=== PATIENT | female | born 1965 | race Caucasian/White ===

== ENCOUNTER 2019-12-27 07:48 | Day surgery (SDC) | payer OTHER, SELFPAY ==
[2019-12-26 19:21] VITALS: BMI 43.2
[2019-12-27] VITALS (13 sets, daily range): BP systolic 106–149; BP diastolic 62–84; PULSE 65–80; RESP 12–16; TEMP 36.1–36.9; O2SAT 95–100
--- NOTE | 2019-12-27 07:42 | MHC.SHP ---
Pre-Procedural Eval Section B Chief Complaint: medial meniscus tear Details of Present Illness: right knee pain Relevant Family History (Specify if Yes): No Relevant Social History: None Present Medications: see Short Stay Collaborative assessment Medical History: No relevant PMH History of Previous Operations: No relevant previous surgery Allergies: Allergies Allergy/AdvReac Type Severity Reaction Status Date / Time No Known Allergies Allergy Verified 12/26/19 19:41 Review of Systems Sugical H&P ROS: Negative: Constitution, Cardiovascular, Respiratory, Neurological, Psychiatric, Hem-Onc, Allergic/Immunologic, Gastrointestinal, Genitourinary, Integumentary and Endocrine and Yes, Specify: Musculoskeletal (right knee pain) Exam Surgical H&P Exam: Normal: HEENT, Normal: Heart, Normal: Lungs, Normal: Abdomen, Normal: Skin and Normal: Neurological and Significant Findings: Extremities (right knee medial joint line pain) Plan Diagnosis/Plan: Change (plan for right knee arthroscopy for medial meniscus tear) Patient has been examined and remains a candidate for the planned procedure
--- NOTE | 2019-12-27 07:49 | HO.ANESPROP2 ---
HPI - Anesthesia Eval Consult details Narrative: Right knee pain PMFSH Past Medical History Medical History (Updated 12/27/19 @ 07:53 by Shena Roberts) Arthritis Increased BMI Liver problem Family History Family history of problems with anesthesia: No Surgical History Surgical History (Updated 12/26/19 @ 19:31 by Chelita Agustin RN) History of breast biopsy History of carpal tunnel release of both wrists History of surgical removal of ganglion cyst Hx of tonsillectomy S/P trigger finger release History of Problems with Anesthesia: No Social History Social History Are you a primary director of career services to a significant other at home: No Do you presently have visiting nurse or other home services: No Smoking Status: Former smoker Smoking Quit Date: 2010 Use of substances other than those prescribed or required for medical reasons: No Advance Directives: No Advance Directives Information Provided: No Advance Directives on File: No Meds Allergies Allergy/AdvReac Type Severity Reaction Status Date / Time No Known Allergies Allergy Verified 12/26/19 19:41 Home Medications Medication Instructions Recorded Confirmed Type No Known Home Meds 12/27/19 12/27/19 History Exam Exam Date and Time: December 27, 2019 0749 Height,Weight and Vital Signs: Height. 5ft 5in Weight 118.026kg Vital Signs Temp Pulse Resp BP Pulse Ox 12/27/19 08:09 98.4 F 77 16 149/73 H 100 Assessment and Plan Assessment Anesthesia Assessment: Anesthesia Plan Discussed and Chart Reviewed Final Anesthetic Review NPO: Yes ASA Class: II Final Preanesthetic Review: No Changes in Pt Med Stat, Meds/Allgs Chart Reviewed, Consent Obtained/Reviewed and Anes Risks/Benef Reviewed Patient Risk: Intermediate Procedure Risk: Low Anesthetic Plan Anesthetic Plan: GA Disposition: Standard PACU
[2019-12-27] MEDS: Lactated Ringers 1,000 ML 50 ML IVCONT (08:40)
[2019-12-27] MEDS: Acetaminophen 325 MG TABLET 650 MG PO (12:03)
[2019-12-27] MEDS: oxyCODONE HCl Immed Release 5 MG TABLET 10 MG PO (12:04)
--- NOTE | 2019-12-27 12:10 | P.CONAN_ITS ---
[facility] Past Medical History Medical History (Updated 12/27/19 @ 07:53 by Shena Roberts) Arthritis Increased BMI Liver problem Family History Family history of problems with anesthesia: No Surgical History Surgical History (Updated 12/26/19 @ 19:31 by Chelita Agustin RN) History of breast biopsy History of carpal tunnel release of both wrists History of surgical removal of ganglion cyst Hx of tonsillectomy S/P trigger finger release History of Problems with Anesthesia: No Social History Social History Are you a primary healthcare customer service to a significant other at home: No Do you presently have visiting nurse or other home services: No Smoking Status: Former smoker Smoking Quit Date: 2010 Use of substances other than those prescribed or required for medical reasons: No Advance Directives: No Advance Directives Information Provided: No Advance Directives on File: No Meds Allergies Allergy/AdvReac Type Severity Reaction Status Date / Time No Known Allergies Allergy Verified 12/26/19 19:41 Exam Exam Date and Time: December 27, 2019 1210 Height,Weight and Vital Signs: Height 5 ft 5 in Weight 118.026 kg Last Vital Signs Temp 97.0 F 12/27/19 11:47 Pulse 72 12/27/19 11:47 Resp 12 12/27/19 11:47 BP 106/83 12/27/19 11:47 Pulse Ox 100 12/27/19 11:47 Airway Mallampati Class: II TM Dist: >3cm Neck ROM: Full Loose/Missing/Broken Teeth: No Heart: RRR Lungs: CTAB Assessment and Plan Assessment Anesthesia Assessment: Anesthesia Plan Discussed and Chart Reviewed Final Anesthetic Review NPO: Yes ASA Class: II Final Preanesthetic Review: No Changes in Pt Med Stat, Meds/Allgs Chart Reviewed , Consent Obtained/Reviewed and Anes Risks/Benef Reviewed Patient Risk: Intermediate Procedure Risk: Low Anesthetic Plan Anesthetic Plan: GA Disposition: Standard PACU
[2019-12-27] MEDS: fentaNYL citrate/PF 100 MCG/2 ML VIAL 50 MCG IVPUSH ×3 (12:12→12:47)
[2019-12-27] MEDS: fentaNYL citrate/PF 100 MCG/2 ML VIAL 25 MCG IVPUSH (12:29)
--- NOTE | 2019-12-27 13:14 | PM.OP ---
Brief Operative Note Date of procedure: 12/27/19 Pre-op diagnosis: right knee mmt Post-op diagnosis: other (right knee mmt, right knee medial femoral condyle injury, loose body, lateral meniscus tear) Procedure: right knee with partial medial and lateral meniscectomy, removal of loose body and chondroplasty Surgeon: Reyes Chan MD Anesthesia: GETA and local IV fluids (mL): 500 Pathology: none sent Condition: stable Disposition: PACU
--- NOTE | 2019-12-27 13:40 | HO.POSTANES ---
Post Anesthesia Evaluation Post Anesthesia Evaluation Vital Signs: Vital Signs Temp Pulse Resp BP Pulse Ox 12/27/19 13:07 65 16 115/72 97 12/27/19 12:52 69 16 121/68 95 12/27/19 12:47 80 16 134/73 100 12/27/19 12:34 65 16 108/72 97 12/27/19 12:29 69 16 127/73 97 12/27/19 12:17 71 16 110/62 97 12/27/19 12:14 16 12/27/19 12:12 16 12/27/19 12:02 72 16 133/73 96 12/27/19 11:57 69 16 126/63 97 12/27/19 11:52 70 16 119/84 100 12/27/19 11:47 97.0 F 72 12 106/83 100 12/27/19 08:09 98.4 F 77 16 149/73 H 100 Anesthesia: General LMA Mental Status: Awake Pain Control: Satisfactory Nausea/Vomiting: None Hydration: Adequate Anesthesia-Related Issues: No Anes. Related Issues
--- NOTE | 2020-01-03 14:32 | OP_ITS ---
SURGEON: Reyes Chan MD INDICATIONS: This is a 54-year-old woman with ongoing pain secondary to clinically and radiologically documented meniscus tear of both the medial and lateral compartments. PREOPERATIVE DIAGNOSIS: Right knee medial meniscus tear. PROCEDURE PERFORMED: Right knee arthroscopy with partial, medial and lateral meniscectomy, removal of loose body, and chondroplasty. ESTIMATED BLOOD LOSS: None. COMPLICATIONS: None known. ANESTHESIA: General and local. ASSISTANTS: None. SPECIMENS: POSTOPERATIVE DIAGNOSES: 1. Right knee medial meniscus tear. 2. Right medial femoral condyle, loss of cartilage. 3. Loose body. 4. Lateral meniscus tear. FLUIDS: 500. PROCEDURE IN DETAIL: The patient was brought to the operating room, placed supine on the operative table and prepped and draped in standard sterile fashion. Time-out was called to identify proper site, proper procedure, proper surgeon. IV antibiotics per weight was administered. I began by making anterolateral stab incision and placed my blunt trocar atraumatically into the patellofemoral joint. I insufflated the joint, placed my 30-degree arthroscope. She had florid synovitis of the anterior compartment and grade 1 changes of both the patella and the trochlea. The gutters were clean. I descended into the medial compartment and made my medial portal under direct visualization. Most notable was a large approximately 1 cm x 2 to 3 cm long, soft grade 4 cartilage loss on the medial half of the weightbearing portion of the medial femoral condyle. Adjacent to this, was a large complex meniscus tear. I used a combination of a shaver, biter, and cautery to debride the meniscus down to stable edges. I also used a shaver to remove any loose cartilaginous tissue. As I descended to expect the ACL, there was a large chondral synovialized loose body that was removed. Once this was done, I descended into the lateral compartment. She had an undersurface flap tear of the lateral meniscus. This was removed with a shaver and biter and the remaining meniscus was probed and was found to be stable. Once all this was done, I removed my instrumentation. Portals were closed with nylon and I injected 25 mL of 0.25% Marcaine plain into the knee joint and the surrounding soft tissues around the portals. The patient was placed in sterile dressing, extubated, and brought to recovery room in stable condition. There were no known complications. MD CECILIA Alvarez/JACY / [id number] MTDD
== END 2019-12-27 13:45 | disposition home or self-care (01) ==
PROVIDERS: PCP Internal Medicine; Visit Provider Orthopaedic Surgery
PROC: (CPT 29870; principal; 2019-12-27 09:30)
DX: S83.231A Complex tear of medial meniscus, current injury, right knee, initial encounter (principal); S83.281A Other tear of lateral meniscus, current injury, right knee, initial encounter; M23.91 Unspecified internal derangement of right knee; M23.41 Loose body in knee, right knee; M17.11 Unilateral primary osteoarthritis, right knee; X58.XXXA Exposure to other specified factors, initial encounter; Y93.9 Activity, unspecified; Y92.9 Unspecified place or not applicable; Y99.8 Other external cause status
CPT/HCPCS: 29880; J0171; J0690; J1100; J1885; J2250; J2405; J3010

== ENCOUNTER → 2020-01-11 10:37 | Outpatient (BNVA) | payer OTHER, SELFPAY | PROVIDERS: Visit Provider Physician Assistant | DX: Z76.89 Persons encountering health services in other specified circumstances (principal) ==

== ENCOUNTER 2020-02-15 14:00 | Outpatient (RCR) | payer OTHER, SELFPAY ==
--- NOTE | 2020-01-16 09:21 | MHC.PT.EP ---
[facility] [place] Office [place] Office [place] Office [address] Perico Louise [address] [phone] F: [phone] F: [phone] F: [phone] F: [phone] Physical Therapy Plan of Care Date of Evaluation: 01/16/20 Date of Surgery: 12/27/2019 Diagnosis: R medial and lateral menisectomy 12/26 Assessment: 54 y/o female referred to PT s/p R knee menisectomy on 12/27/2019. Reports pain and difficulty with walking > 10min, sitting and standing for prolonged periods, ascending/descending stairs (performs one at a time laterally), and squatting. 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 Examination shows decreased R knee A/PROM (0-5-96), decreased R knee/hip strength, increased tenderness/hypomobile tissue medial HS/gastoc, R knee swelling, pain, and impaired gait pattern. She would benefit from PT 2x/week for 4 weeks to address impairments, implement HEP, and optimize functional mobility. Frequency and Duration: The patient will be seen 2x/week for 4 weeks Short Term Goals: 2 weeks: 1. Initiate HEP 2. Improve R knee AROM to 0-115 3. Pt will sit with neutral B LE posture without cues IR: maintain R knee in extension and slight hip ER Usp Goals: 4 weeks: 1. I with HEP and self management of sx 2. Pt will ascend/descend stairs with one rail in step through 3. Pt will be able to stand > 30min with R knee pain < 3/10 Treatment Plan: Modalities to reduce pain, spasms and effusion. Manual therapy to restore motion and function. Therapeutic exercise to improve strength and flexibility. Neuromuscular re-education for posture and balance. Therapeutic activities to return to functional activities of daily living. Please sign and return to therapist. Thank you for your referral.
== END 2020-04-11 09:54 | disposition other institution (70) ==
LOC: HO.PTWFD 14:00
PROVIDERS: PCP Internal Medicine; Visit Provider Physician Assistant
DX: Z47.89 Encounter for other orthopedic aftercare (principal); Z98.890 Other specified postprocedural states
CPT/HCPCS: 97014; 97035; 97110; 97116; 97140; 97161; 97535

== ENCOUNTER → 2020-05-10 08:24 | Outpatient (BNVA) | payer SELFPAY | PROVIDERS: PCP Internal Medicine; Visit Provider Orthopaedic Surgery | DX: M17.11 Unilateral primary osteoarthritis, right knee (principal) | CPT/HCPCS: 20610; J1100 ==

== ENCOUNTER → 2020-10-30 08:46 | Outpatient (BNVA) | payer OTHER, SELFPAY | PROVIDERS: PCP Internal Medicine; Visit Provider Physician Assistant | DX: Z76.89 Persons encountering health services in other specified circumstances (principal) | CPT/HCPCS: 73564; 99203 ==

== ENCOUNTER 2020-11-04 12:22 | Outpatient (REF) | payer OTHER, SELFPAY ==
--- NOTE | ~2020-11-04 | MM_ITS ---
EXAMINATION: MM SCREENING DIGITAL BREAST TOMOSYNTHESIS, BILATERAL CLINICAL INFORMATION: Screening. Asymptomatic. The lifetime risk of breast cancer based on the Tyrer-Cuzick Model is 18%. COMPARISON: Mammography: 11/01/2019, 07/19/2018, 01/20/2017 TECHNIQUE: Digital breast tomosynthesis is performed in both the craniocaudal and mediolateral oblique views along with computer-aided detection (CAD). Synthesized 2D images are generated from the tomosynthesis. FINDINGS: There are scattered areas of fibroglandular density (ACR BI-RADS breast composition Category b). There are no significant masses, abnormal calcifications, or other abnormalities. There is small stable nodule posterior 6:00 right breast. Low right axillary tail nodes stable. Skin contours are smooth. There are no significant changes from prior exams. MM/MM tomosynthesis screening BI IMPRESSION: No mammographic evidence of malignancy. ASSESSMENT: BI-RADS 2: Benign RECOMMENDATION: Routine annual mammography screening. This patient's information was entered into a reminder system with a target due date for their next mammogram.
== END 2020-11-04 12:23 | disposition home or self-care (01) ==
LOC: HO.MAMMO 12:22
PROVIDERS: PCP Internal Medicine; Visit Provider Internal Medicine
DX: Z12.31 Encounter for screening mammogram for malignant neoplasm of breast (principal)
CPT/HCPCS: 77063; 77067

== ENCOUNTER 2021-03-20 07:27 | Outpatient (REF) | payer OTHER, SELFPAY ==
--- NOTE | ~2021-03-20 | MR_ITS ---
EXAMINATION: MR KNEE WITHOUT CONTRAST, RIGHT CLINICAL INFORMATION: Right knee pain and swelling following a fall on 02/20/2021. Osteoarthritis. Arthroscopic meniscal repair in 2019. COMPARISON: Right knee radiographs dated 10/30/2020 and right knee MRI dated 12/13/2019. TECHNIQUE: MRI of the knee without contrast was performed using routine sequences on a high-field scanner. FINDINGS: MENISCI: Medial Meniscus: Interval attenuation of the meniscal body, likely indicating a focal radial inner margin tear. Additional abnormal signal throughout the tibial articular surface of the posterior horn, increased in prominence when compared to the prior examination and likely representing a combination of postsurgical change and recurrent tearing. Lateral Meniscus: Oblique tibial articular surface tear of the meniscal body extending into the posterior horn, new/increased when compared to the prior examination. Inner margin fraying of the posterior root, increased when compared to the prior examination. LIGAMENTS: Cruciate: Thickening and increased T2 signal of the anterior cruciate ligament, increased when compared to the prior examination and consistent with mucoid degeneration. Intact posterior cruciate ligament. Collateral: Edema adjacent to the medial collateral ligament consistent with an acute grade 1 sprain/partial tear. Intact fibular collateral ligament. EXTENSOR MECHANISM: Superior patellar enthesophytes. Intact quadriceps and patellar tendons. ARTICULAR CARTILAGE/BONE: Patellofemoral Compartment: Patellar articular cartilage thinning. Central trochlea articular cartilage signal heterogeneity with areas of full-thickness fissuring. Tiny marginal osteophytes. Findings are similar when compared to the prior examination. Medial Compartment: Full-thickness weightbearing medial femoral condyle and medial tibial plateau articular cartilage loss with marginal osteophytes, increased in prominence when compared to the prior examination. Lateral Compartment: Lateral tibial spine articular cartilage thinning with subchondral cystic change, similar when compared to the prior examination. Tiny marginal osteophytes. JOINT FLUID AND BURSAE: Small joint effusion with mild synovitis. Small Aranda's cyst. MR/MR knee RT wo con IMPRESSION: 1. Increased attenuation of the medial meniscal body as well as increasing abnormal signal throughout the tibial articular surface of the posterior horn. Findings likely represent a combination of postsurgical change and recurrent meniscal tearing. 2. Oblique tibial articular surface tear of the lateral meniscal body extending to the posterior horn, new/increased when compared to the prior examination. New inner margin fraying of the posterior root. 3. Mucoid degeneration of the anterior cruciate ligament, increased when compared to the prior examination. 4. Acute grade 1 sprain/partial tear of the medial collateral ligament. 5. Moderate medial as well as mild patellofemoral compartment osteoarthritis, slightly progressed. Stable mild lateral compartment osteoarthritis. Small joint effusion with mild synovitis. Small Aranda's cyst.
== END 2021-03-20 07:28 | disposition home or self-care (01) ==
LOC: HO.MRI 07:27
PROVIDERS: Visit Provider Physician Assistant
DX: M17.11 Unilateral primary osteoarthritis, right knee (principal)
CPT/HCPCS: 73721

== ENCOUNTER 2021-07-02 14:13 | Outpatient (REF) | payer OTHER, SELFPAY ==
[2021-07-05 02:06] LABS: HPV mRNA E6/E7 rflx Not Detected (Not Detected)
== END 2021-07-02 14:14 | disposition home or self-care (01) ==
LOC: HO.LAB 14:13
PROVIDERS: PCP Internal Medicine; Visit Provider Obstetrics & Gynecology
DX: Z01.411 Encounter for gynecological examination (general) (routine) with abnormal findings (principal); Z11.51 Encounter for screening for human papillomavirus (HPV); N95.2 Postmenopausal atrophic vaginitis
CPT/HCPCS: 87624; 88142

== ENCOUNTER 2021-07-15 06:08 | Outpatient (REF) | payer OTHER, SELFPAY ==
[2021-07-15 06:24] LABS: MANUAL DIFF FLAG NO
[2021-07-15 07:36] LABS: Appearance Urine CLEAR; Color Urine YELLOW; Glucose Urine UA NEG (NEG); Leukocyte Esterase Urine NEG (NEG); Nitrite Urine NEG (NEG); Specific Gravity - Urine >= 1.030 (1.005-1.025); Urine Blood NEG (NEG); Urine Ketones NEG (NEG); Urine Protein NEG (NEG-TRACE)
[2021-07-15 07:36] LABS: Basophils Percent Auto 0.8 % (0-2); Eosinophils Absolute Auto 0.5 X10*3/uL (0.0-0.4); Eosinophils Percent Auto 8.7 % (0-4); Hematocrit 44.9 % (37.0-47.0); Hemoglobin 13.8 g/dl (12.0-16.0); Imm Gran Abs Auto 0.02 X10*3/uL (0.00-0.03); Imm Gran Pct Auto 0.4 % (0.0-0.4); Lymphocytes Absolute Auto 1.7 X10*3/uL (1.2-4.9); Lymphocytes Percent Auto 31.8 % (20-40); Mean Corpuscular HGB Conc 30.7 g/dl (31.0-35.0); Mean Corpuscular Volume 84.6 fL (80.0-98.0); Mean Platelet Volume 10.3 fL (9.4-12.3); Monocytes Absolute Auto 0.6 X10*3/uL (0.1-1.2); Monocytes Percent Auto 10.4 % (2-11); Neutrophils Absolute Auto 2.6 x10*3/uL (2.0-8.3); Neutrophils Percent Auto 47.9 % (45-73); Platelet Count 335 X10*3/uL (160-400); Red Blood Count 5.31 X10*6/uL (4.20-5.50); Red Cell Distribution Width 14.2 % (11.0-16.0); White Blood Count 5.3 X10*3/uL (4.8-10.8)
[2021-07-15 08:20] LABS: Free T4 (Free Thyroxine) 1.11 ng/dL (0.71-1.85); Thyroid Stimulating Hormone 1.44 uIU/mL (0.32-4.0); Vitamin D 25-OH Total 28.1 ng/mL (>30)
[2021-07-15 08:23] LABS: Estimated Average Glucose 120 mg/dL; Hemoglobin A1c % 5.8 %
[2021-07-15 08:36] LABS: Alanine Aminotransferase 24 U/L (0-31); Albumin Level 4.1 g/dL (3.5-5.0); Alkaline Phosphatase 77 U/L (39-117); Anion Gap 14 (12-20); Aspartate Amino Transferase 21 U/L (5-31); Bilirubin Total 0.5 mg/dL (0.0-1.0); Blood Urea Nitrogen 17 mg/dL (9-16); Calcium 9.4 mg/dL (8.4-10.2); Carbon Dioxide 23 mmol/L (22-29); Chloride 109 mmol/L (96-108); Cholesterol 313 mg/dL; Estimated Glomerular Filt Rate > 60; Glucose Random 104 mg/dL (60-115); HDL Cholesterol 81 mg/dL; LDL Cholesterol Calculated 216 mg/dl; Potassium 5.4 mmol/L (3.3-5.1); Sodium 141 mmol/L (135-145); Total Protein 6.7 g/dL (6.5-8.0); Triglycerides 84 mg/dL
== END 2021-07-15 06:09 | disposition home or self-care (01) ==
LOC: HO.LAB 06:08
PROVIDERS: PCP Internal Medicine; Visit Provider Internal Medicine
DX: E78.00 Pure hypercholesterolemia, unspecified (principal); R73.01 Impaired fasting glucose; R35.1 Nocturia
CPT/HCPCS: 36415; 80053; 80061; 81003; 82306; 83036; 84439; 84443; 85025

== ENCOUNTER → 2021-12-25 15:38 | Outpatient (BNVA) | payer OTHER, SELFPAY | PROVIDERS: PCP Internal Medicine; Visit Provider Orthopaedic Surgery | DX: M17.0 Bilateral primary osteoarthritis of knee (principal) | CPT/HCPCS: 20610; 90686; J1100 ==

== ENCOUNTER → 2022-02-17 12:45 | Outpatient (BNVA) | payer OTHER, SELFPAY | PROVIDERS: PCP Internal Medicine | DX: Z13.89 Encounter for screening for other disorder (principal) | CPT/HCPCS: 36415; 84450; 84460; 85025; 86803; 87389; 99203 ==

== ENCOUNTER 2022-02-24 16:00 | Outpatient (RCR) | payer OTHER, SELFPAY ==
--- NOTE | 2022-02-11 17:37 | MHC.PT.EP ---
[facility] [place] Office [place] Office [place] Office [address] Perico Louise [address] [phone] F: [phone] F: [phone] F: [phone] F: [phone] Physical Therapy Plan of Care Date of Evaluation: Date of Surgery: N/A Diagnosis: sacrococcygeal disorders, not elsewhere classified Assessment: Pt is a pleasant 57yo F who presents to PT with L sided low back pain. 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 She presents to PT with current impairments in pain, decreased lumbar ROM, decreased core stabilization, decreased hip/glute strength, soft tissue restrictions, and decreased muscle length. She is extremely TTP throughout L piriformis with reproductions of symptoms. She is limited functionally by prolonged standing, prolonged sitting, bending, and twisting. She is an excellent candidate for skilled PT in order to address current impairments to facilitate return to PLOF. She is recommended to be seen 2x/week for 4 weeks and will be reassessed at that time. Frequency and Duration: The patient will be seen 2x/week for 4 weeks Short Term Goals: Pt will be I with HEP to promote self management of symptoms Pt will demonstrate improvements in postural awareness throughout the day Pt will improve L glute med strength by 1/2 grade Alf Goals: Pt will demonstrate full, pain-free ROM throughout all planes of lumbar spine Pt will improve L glute med strength by 1 grade to assist with standing functional tasks Pt will demonstrate ability to squat and shrimp picker object from the floor with proper body mechanics and minimal to no pain Treatment Plan: Modalities to reduce pain, spasms and effusion. Manual therapy to restore motion and function. Therapeutic exercise to improve strength and flexibility. Neuromuscular re-education for posture and balance. Therapeutic activities to return to functional activities of daily living. Electronically signed by: Hortencia Uribe, PT, DPT Please sign and return to therapist. Thank you for your referral.
--- NOTE | 2022-04-06 15:39 | MHC.PT.DC ---
[facility] [place] Office [place] Office [place] Office [address] Perico Louise [address] [phone] F: [phone] F: [phone] F: [phone] F: [phone] Physical Therapy Discharge Report Diagnosis: sacrococcygeal disorders, not elsewhere classified Date of Surgery: N/A Date of Evaluation: 02/11/22 Date of Discharge: 04/06/22 Treatments to Date: 4 Cancellations to Date: 5 No Shows to Date: 1 Discharge Status: Visit Non-compliance Discharge Summary: Pt was seen for PT from 02/11/22-02/24/22. Her last attended appointment was 02/24/22. Since last attended appointment she has had 5 cancellations and 1 no-show appointment including a no-show appointment for her last scheduled appointment today. Pt is being D/C from skilled PT as she has not attended in > 30 days. Pt current level of function unknown at this time. Electronically signed by: Hortencia Uribe, PT, DPT Please sign and return to therapist. Thank you for your referral.
== END 2022-04-06 15:39 | disposition home or self-care (01) ==
LOC: HO.PT 16:00
PROVIDERS: Visit Provider Physician Assistant
DX: M53.3 Sacrococcygeal disorders, not elsewhere classified (principal)
CPT/HCPCS: 97110; 97140; 97162

== ENCOUNTER 2022-03-04 08:16 | Outpatient (REF) | payer OTHER, SELFPAY ==
--- NOTE | ~2022-03-04 | US_ITS ---
EXAMINATION: US LOWER EXTREMITY VENOUS (REFLUX EXAM), BILATERAL CLINICAL INDICATION: Chronic venous insufficiency with lower extremity varicose veins COMPARISON: None. TECHNIQUE: Color flow triplex imaging and compression Doppler was performed to evaluate both the deep and the superficial systems bilaterally. To evaluate the superficial system, the examination was performed in the upright position. Color-flow Doppler ultrasound and compression ultrasound were utilized. In addition, maneuvers were utilized to demonstrate reflux. FINDINGS: 1. DEEP VENOUS ULTRASOUND OF THE RIGHT LOWER EXTREMITY: Common Femoral Vein: Compressible, normal respiratory variation and augmented flow. Femoral Vein: Compressible, normal color flow and augmentation. Popliteal Vein: Compressible, normal augmentation. Deep Reflux: There is no evidence of reflux in the deep system in either the common femoral vein or the popliteal vein. There is no evidence of a Aranda's cyst. 2. SUPERFICIAL ULTRASOUND WITH DOPPLER OF RIGHT LOWER EXTREMITY: GREAT SAPHENOUS VEIN: Saphenofemoral Junction: 1.0 cm; Reflux: 0 ms Proximal Thigh: 0.5 cm; Reflux: 0 ms Mid Thigh: 0.3 cm; Reflux: 628 ms Above Knee: 0.2 cm; Reflux: 0 ms At Knee: 0.3 cm; Reflux: 0 ms Below Knee: 0.2 cm; Reflux: 0 ms Mid Calf: 0.2 cm; Reflux: 0 ms Ankle: 0.2 cm; Reflux: 540 ms DUPLICATED MEDIAL GREAT SAPHENOUS VEIN: Diameter: None Imaged Reflux: NA DUPLICATED LATERAL GREAT SAPHENOUS VEIN: Diameter: 0.3 cm Reflux: None SMALL SAPHENOUS VEIN: Proximal: 0.2 cm; Reflux: 0 ms Distal: 0.3 cm; Reflux: 0 ms VEIN OF GIACOMINI: None Imaged. PERFORATORS: Location: None significant Size: NA Reflux: NA VARICOSITIES: Location: None Imaged Size: NA Reflux: NA 3. DEEP VENOUS ULTRASOUND OF THE LEFT LOWER EXTREMITY: Common Femoral Vein: Compressible, normal respiratory variation and augmented flow. Femoral Vein: Compressible, normal color flow and augmentation. Popliteal Vein: Compressible, normal augmentation. Deep Reflux: There is mild to moderate reflux in the mid superficial femoral vein measuring 1072 ms There is no evidence of a Aranda's cyst. 4. SUPERFICIAL ULTRASOUND WITH DOPPLER OF LEFT LOWER EXTREMITY: GREAT SAPHENOUS VEIN: Saphenofemoral Junction: 0.6 cm; Reflux: 0 ms Proximal Thigh: 0.6 cm; Reflux: 0 ms Mid Thigh: 0.3 cm; Reflux: 964 ms Above Knee: 0.3 cm; Reflux: 0 ms At Knee: 0.3 cm; Reflux: 0 ms Below Knee: 0.3 cm; Reflux: 3212 ms Mid Calf: 0.2 cm; Reflux: 0 ms Ankle: 0.2 cm; Reflux: 0 ms DUPLICATED MEDIAL GREAT SAPHENOUS VEIN: Diameter: None Imaged Reflux: NA DUPLICATED LATERAL GREAT SAPHENOUS VEIN: Diameter: 0.4 cm Reflux: None SMALL SAPHENOUS VEIN: Proximal: 0.3 cm; Reflux: 0 ms Distal: 0.2 cm; Reflux: 0 ms VEIN OF GIACOMINI: None Imaged. PERFORATORS: Location: None significant Size: NA Reflux: NA VARICOSITIES: Location: None Imaged Size: NA Reflux: NA US/US venous duplex LE BI IMPRESSION: Right: Focal areas of mild to moderate reflux in the great saphenous vein at the mid thigh and ankle as described above Left: Focal areas of moderate to severe reflux in the great saphenous vein at the mid to thigh and proximal calf. Note is also made of mild to moderate deep venous reflux in the mid to superficial femoral vein
== END 2022-03-04 08:17 | disposition home or self-care (01) ==
LOC: HO.US 08:16
PROVIDERS: Visit Provider Surgery Vascular Surgery
DX: I83.893 Varicose veins of bilateral lower extremities with other complications (principal)
CPT/HCPCS: 93970

== ENCOUNTER → 2022-04-16 14:27 | Outpatient (BNVA) | payer OTHER, SELFPAY | PROVIDERS: PCP Internal Medicine; Visit Provider Orthopaedic Surgery | DX: Z13.89 Encounter for screening for other disorder (principal) ==

== ENCOUNTER 2022-05-05 15:44 | Outpatient (REF) | payer OTHER, SELFPAY ==
--- NOTE | ~2022-05-05 | MR_ITS ---
EXAMINATION: MR KNEE WITHOUT CONTRAST, LEFT CLINICAL INFORMATION: Medial left knee pain. Effusion. COMPARISON: Left knee radiographs dated 12/08/2019. TECHNIQUE: MRI of the knee without contrast was performed using routine sequences on a high-field scanner. FINDINGS: MENISCI: Medial Meniscus: Attenuation and irregularity of the posterior horn and root, consistent with irregular tearing. Nondisplaced oblique tibial articular surface tear through the medially extruded meniscal body. Lateral Meniscus: Minimal inner margin/tibial articular surface fraying of the posterior meniscal body/posterior horn junction. LIGAMENTS: Cruciate: Intact Collateral: Intact EXTENSOR MECHANISM: Superior patellar enthesophytes. Intact quadriceps and patellar tendons. ARTICULAR CARTILAGE/BONE: Patellofemoral Compartment: Patellar median ridge and lateral patellar facet articular cartilage thinning with areas of full-thickness fissuring and minimal subchondral cystic change. Central trochlea signal heterogeneity and surface irregularity extending to the medial trochlea. Marginal osteophytes. Medial Compartment: Full-thickness weightbearing articular cartilage loss at the medial femoral condyle and medial tibial plateau with mild bony remodeling as well as medial tibial plateau subchondral cystic change. Prominent marginal osteophytes. Lateral Compartment: Articular cartilage signal heterogeneity with surface irregularity and small marginal osteophytes. JOINT FLUID AND BURSAE: Small joint effusion and trace Aranda's cyst. MR/MR knee LT wo con IMPRESSION: 1. Attenuation and irregularity of the medial meniscus posterior horn and root, consistent with irregular tearing. Nondisplaced oblique tibial articular surface tear through the medially extruded meniscal body. 2. Minimal inner margin/tibial articular surface fraying of the lateral meniscal body/posterior horn junction. 3. Severe medial as well as [id number] patellofemoral and mild lateral compartment osteoarthritis. Small joint effusion and trace Aranda's cyst.
== END 2022-05-05 15:45 | disposition home or self-care (01) ==
LOC: HO.MRI 15:44
PROVIDERS: Visit Provider Orthopaedic Surgery
DX: M25.462 Effusion, left knee (principal); M17.12 Unilateral primary osteoarthritis, left knee
CPT/HCPCS: 73721

== ENCOUNTER → 2022-07-06 15:31 | Outpatient (BNVA) | payer OTHER, SELFPAY | PROVIDERS: PCP Internal Medicine; Visit Provider Obstetrics & Gynecology | DX: Z13.89 Encounter for screening for other disorder (principal) ==

== ENCOUNTER 2022-07-13 15:43 | Outpatient (REF) | payer OTHER, SELFPAY ==
--- NOTE | ~2022-07-13 | MM_ITS ---
EXAMINATION: MM SCREENING DIGITAL BREAST TOMOSYNTHESIS, BILATERAL CLINICAL INFORMATION: Screening. Asymptomatic. The lifetime risk of breast cancer based on the Tyrer-Cuzick Model is 19%. COMPARISON: Mammography: 11/04/2020, 11/01/2019, 07/19/2018, 01/20/2017 TECHNIQUE: Digital breast tomosynthesis is performed in both the craniocaudal and mediolateral oblique views along with computer-aided detection (CAD). Synthesized 2D images are generated from the tomosynthesis. FINDINGS: There are scattered areas of fibroglandular density (ACR BI-RADS breast composition Category b). There are no significant masses, abnormal calcifications, or other abnormalities. Parenchymal pattern is similar to prior studies. There is no developing density or architectural abnormality. The axilla and skin contours are unremarkable. No significant changes. MM/MM tomosynthesis screening BI IMPRESSION: No mammographic evidence of malignancy. ASSESSMENT: BI-RADS 1: Negative RECOMMENDATION: Routine annual mammography screening. This patient's information was entered into a reminder system with a target due date for their next mammogram.
== END 2022-07-13 15:44 | disposition home or self-care (01) ==
LOC: HO.MAMMO 15:43
PROVIDERS: PCP Internal Medicine; Referring Provider Obstetrics & Gynecology; Visit Provider Internal Medicine
DX: Z12.31 Encounter for screening mammogram for malignant neoplasm of breast (principal)
CPT/HCPCS: 77063; 77067

== ENCOUNTER 2022-08-04 06:50 | Emergency (ER) | payer OTHER, SELFPAY ==
--- NOTE | ~2022-08-04 | CT_ITS ---
EXAMINATION: CT ABDOMEN AND PELVIS WITH CONTRAST CLINICAL INFORMATION: Abdominal pain. Rule out obstruction. COMPARISON: Previous CT of the abdomen and pelvis June 2008 TECHNIQUE: Multidetector volumetric images were obtained from the superior aspect of the liver through the pubic symphysis following administration 85 mL of Omnipaque 350 intravenous contrast. Sagittal and coronal reformatted images were obtained on the technologist's workstation. Oral contrast: Yes This CT examination was performed using dose optimization techniques as appropriate, variously including the following: *Automated exposure control *Adjustment of mA and/or kV according to patient size (this includes techniques or standardized protocols for targeted exams where dose is matched to indication/reason for exam; i.e. extremities or head) *Use of iterative reconstruction technique DLP: 1029 mGy-cm FINDINGS: LUNG BASES: The visualized lung bases are unremarkable. LIVER, GALLBLADDER, AND BILIARY TREE: The liver is normal in size, shape, and attenuation. No focal hepatic lesion or biliary ductal dilatation is present. The gallbladder is unremarkable with no evidence of radiopaque gallstones, gallbladder wall thickening, or obvious pericholecystic inflammatory changes. PANCREAS: Unremarkable. SPLEEN: Unremarkable. ADRENAL GLANDS: Unremarkable. KIDNEYS AND URETERS: The kidneys are normal in size, shape, and attenuation. No hydronephrosis, hydroureter, or calculi seen. No perinephric stranding. BLADDER: Unremarkable. GASTROINTESTINAL TRACT: Mild diverticulosis of the colon. No evidence of diverticulitis. The small and large bowel are otherwise unremarkable. The appendix is unremarkable. ABDOMINAL WALL: No significant hernia is appreciated. LYMPH NODES: Normal. VASCULAR: Unremarkable. PELVIC VISCERA: Small calcified uterine fibroids. OSSEOUS STRUCTURES: Degenerative changes of the spine. CT/CT abdomen pelvis w IV con IMPRESSION: No evidence of obstruction. Mild diverticulosis of the colon. Small partially calcified uterine fibroids. Fleischner guidelines were followed.
[2022-08-04 06:53] VITALS: BP 140/84; PULSE 96; RESP 18; TEMP 36.4; O2SAT 96; BMI 41.6
[2022-08-04 07:12] LABS: MANUAL DIFF FLAG NO
[2022-08-04 07:15] LABS: Basophils Percent Auto 0.2 % (0-2); Eosinophils Percent Auto 0.5 % (0-4); Hematocrit 45.7 % (37.0-47.0); Hemoglobin 14.6 g/dl (12.0-16.0); Imm Gran Abs Auto 0.03 X10*3/uL (0.00-0.03); Imm Gran Pct Auto 0.5 % (0.0-0.4); Lymphocytes Absolute Auto 0.5 X10*3/uL (1.2-4.9); Lymphocytes Percent Auto 8.8 % (20-40); Mean Corpuscular HGB Conc 31.9 g/dl (31.0-35.0); Mean Corpuscular Hemoglobin 26.6 pg (27.0-33.0); Mean Corpuscular Volume 83.2 fL (80.0-98.0); Mean Platelet Volume 9.4 fL (9.4-12.3); Monocytes Absolute Auto 0.3 X10*3/uL (0.1-1.2); Monocytes Percent Auto 5.4 % (2-11); Neutrophils Absolute Auto 4.8 x10*3/uL (2.0-8.3); Neutrophils Percent Auto 84.6 % (45-73); Platelet Count 287 X10*3/uL (160-400); Red Blood Count 5.49 X10*6/uL (4.20-5.50); White Blood Count 5.7 X10*3/uL (4.8-10.8)
--- NOTE | 2022-08-04 07:20 | ED_ITS ---
HPI - General Adult General Chief complaint: General Medical Stated complaint: ?Obstruction Time Seen by Provider: 08/04/22 07:20 Source: patient Mode of arrival: ambulatory Limitations: no limitations History of Present Illness HPI narrative: Patient is a 57 year old assigned female at with a history of partial bowel obstruction presenting to the emergency department today with upper abdominal pain and nausea. Patient states that yesterday morning after breakfast, she began to feel pain in her upper abdomen and did not appreciate any bowel sounds on herself. Patient states that she attempted to drink fluids and they immediately came back up. Patient states that she was previously seen in 2007 at [facility] for a partial small bowel obstruction that resolved on its own. Patient denies any abdominal surgery history. Patient denies any dizziness, lightheadedness, vomiting, fever, chills, blurry vision, double vision, loss of vision, chest pain, difficulty breathing, shortness of breath, back pain, night sweats, pain with urination, increased urinary frequency, increased urinary urgency, blood in her urine or stool, syncope or a near syncopal episode, recent trauma or falls, bowel incontinence, bladder incontinence, bowel retention, bladder retention, or any other complaints at this time. Onset (ago): day(s) (1) Location: abdomen Radiation: non-radiation Severity: mild Severity scale (1-10): 3 Relieving factors: none Exacerbating factors: none Associated symptoms: nausea/vomiting Treatments prior to arrival: none Related Data Previous Rx's Medication Instructions Recorded estradiol 10 mcg vaginal insert, 10 mcg vaginal .COMPLEX #18 ea 07/04/21 in a starter dose pack omeprazole 40 mg capsule,delayed 40 mg PO DAILY #30 caps 08/04/22 release Allergies Allergy/AdvReac Type Severity Reaction Status Date / Time No Known Allergies Allergy Verified 08/04/22 06:56 Review of Systems Constitutional: Constitutional: Reports no additional constitutional complaints, Denies chills, Denies fever(s) and Denies night sweats Eyes: Eyes: Reports no additional eye complaints, Denies blurry vision, Denies change in vision, Denies diplopia, Denies eye discharge, Denies loss of vision and Denies eye pain ENT: Denies dizziness Cardiovascular: Cardiovascular: Reports no additional cardiovascular complaints, Denies chest pain, Denies lightheadedness, Denies Loss of Consciousness and Denies dyspnea Respiratory: Respiratory: Reports no additional respiratory complaints and Denies dyspnea Gastrointestinal: Gastrointestinal: Reports no additional gastrointestinal complaints, Reports abdominal pain, Denies melena, Denies hematochezia, Denies change in bowel habits, Denies change in stool character and Reports nausea Genitourinary: Genitourinary: Denies hematuria, Denies urinary frequency, Denies dysuria, Denies urinary incontinence, Denies urinary hesitancy and Denies urinary urgency Musculoskeletal: Musculoskeletal: Reports no additional musculoskeletal complaints, Denies numbness and Denies tingling Neurologic: Denies dizziness, Denies loss of vision, Denies numbness and Den ies tingling Psychiatric: Psychiatric: Reports no additional psychiatric complaints Endocrine: Endocrine: Reports no additional endocrine complaints Hematologic/Lymphatic: Hematologic/Lymphatic: Reports no additional hematologic/lymphatic complaints Allergic/Immunologic: Allergic/Immunologic: Reports no additional allergic/immunologic complaints [facility] Past Medical History Attestation statement: The following information was validated with the patient. Source: old records reviewed and nursing notes reviewed Medical History Arthritis Increased BMI Liver problem Surgical History History of arthroscopy of right knee History of breast biopsy History of carpal tunnel release of both wrists History of surgical removal of ganglion cyst Hx of tonsillectomy S/P trigger finger release Family History Family History Mother Breast cancer Social History Social History Are you a primary wound care technician to a significant other at home: No Do you presently have visiting nurse or other home services: No Smoked in Last 30 Days: No Use of substances other than those prescribed or required for medical reasons: No Advance Directives: No Advance Directives Information Provided: No Current occupational status: employed 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 Physical Exam ED Vital Signs: Vital Signs - 24 hr 08/04/22 06:53 08/04/22 08:58 Temperature 97.6 F 98.4 F Pulse Rate 96 83 Respiratory Rate 18 14 Blood Pressure 140/84 H 129/66 Pulse Oximetry 96 97 Oxygen Delivery Method Room Air Room Air BMI result Body Mass Index 41.6 Const General: cooperative, no acute distress, alert and awake Nutritional Appearance: well nourished Orientation/consciousness: patient oriented x3 Limitations: no limitations HENMT Head: Yes normal to inspection and Yes atraumatic Ears: hearing grossly normal bilaterally and external ears normal General nose exam: Normal external nose present, no nasal discharge noted and no epistaxis Face and sinus: Yes normal facial exam, No abrasion and No laceration Mouth: Normal oral and palatal mucosa present, no drooling and no muffled voice Eyes General: appearance normal, both eyes and all related structures Periorbital: periorbital findings normal Eyelids: Yes eyelids normal Conjunctivae: conjunctivae normal Pupils: Equal, round and reactive pupils present EOM: EOMs intact bilaterally Neck Neck: Yes normal visual inspection, Yes full ROM and Yes no lymphadenopathy Chest Chest palpation & inspection: normal inspection of the chest Resp Effort & Inspection: normal respiratory effort and able to speak in complete sentences Auscultation: clear to auscultation bilaterally GI Inspection: Yes normal to inspection Palpation (GI): Soft to palpation, not firm, nontender and no guarding Auscultation: normal bowel sounds Neuro General: patient oriented x3 and moves all extremities Cranial nerves: Yes Equal, round and reactive pupils present Cognition (Neuro): normal cognition Motor exam (neuro): 5/5 motor strength present throughout Sensory Exam: Normal double simultaneous stimulation for sensation Coordination: [id number] test normal Extrem General: Yes normal to inspection, Yes full ROM and Yes capillary refill normal Psych Appearance: grossly normal Mental Status: mental status grossly normal Affect: normal affect Attitude: cooperative Thought process: Normal thought process present Thought content: Normal thought content present Insight: Good insight present (Psych) Medications Administered Discontinued Medications Generic Name Dose Route Start Last Admin Trade Name Freq PRN Reason Stop Dose Admin Iohexol 100 ml 08/04/22 08:51 08/04/22 08:52 Iohexol 350 Mg/Ml 100 Ml Infus..Btl IV 08/04/22 08:52 85 ml ONCE ONE Administration Ondansetron HCl 4 mg 08/04/22 07:34 08/04/22 08:22 Ondansetron Hcl 4 Mg/2 Ml Vial IVPUSH 08/04/22 07:35 4 mg ONCE ONE Administration Medical Decision Making Medical Decision Making MDM Narrative: Patient is a 57 year old assigned female at with a history of partial small bowel obstruction presenting to the emergency department today with epigastric pain. Patient's physical exam was unremarkable. Patient's blood work was unremarkable. Patient's urine showed no acute process. Patient's abdomen/pelvis CT showed no acute process. I explained my physical exam findings as well as all test results to the patient. I answered all questions asked by the patient. I stressed the importance of the patient taking her medication as prescribed. I stressed the importance of the patient following up with her primary care provider and a GI Specialist. I stressed the importance of the patient returning to the emergency department immediately if her symptoms were to worsen or if she were to develop any dizziness, shortness of breath, difficulty breathing, chest pain, blurry vision, loss of vision, nausea, vomiting, abdominal pain, fever, chills, back pain, or any other complaints. Patient verbalized agreement and understanding with this treatment plan and discharge. Differential Diagnosis Differential Diagnoses: The differential diagnosis associated with the presentation includes abdominal pain, gastritis Lab Data MDM Lab Attestation statement: I reviewed the patient's lab results. 08/04/22 07:05 08/04/22 07:05 Labs: Lab Results 08/04/22 08/04/22 08/04/22 Range/Units 07:05 07:05 07:12 WBC 5.7 (4.8-10.8) X10*3/uL RBC 5.49 (4.20-5.50) X10*6/uL Hgb 14.6 (12.0-16.0) g/dl Hct 45.7 (37.0-47.0) % MCV 83.2 (80.0-98.0) fL MCH 26.6 L (27.0-33.0) pg MCHC 31.9 (31.0-35.0) g/dl RDW 14.0 (11.0-16.0) % Plt Count 287 (160-400) X10*3/uL MPV 9.4 (9.4-12.3) fL Immature Gran % (Auto) 0.5 H (0.0-0.4) % Neut % (Auto) 84.6 H (45-73) % Lymph % (Auto) 8.8 L (20-40) % Rock % (Auto) 5.4 (2-11) % Eos % (Auto) 0.5 (0-4) % Baso % (Auto) 0.2 (0-2) % Lymph # (Auto) 0.5 L (1.2-4.9) X10*3/uL Rock # (Auto) 0.3 (0.1-1.2) X10*3/uL Eos # (Auto) 0.0 (0.0-0.4) X10*3/uL Baso # (Auto) 0.0 (0.0-0.2) X10*3/uL Abs Immat Gran (auto) 0.03 (0.00-0.03) X10*3/uL Absolute Neuts (auto) 4.8 (2.0-8.3) x10*3/uL Absolute Nucleated RBC 0.000 (0.0-0.012) X10*3/uL Nucleated RBC % (auto) 0.0 (0.0-0.2) /100WBC Sodium 139 (135-145) mmol/L Potassium 4.8 (3.3-5.1) mmol/L Chloride 107 (96-108) mmol/L Carbon Dioxide 23 (22-29) mmol/L Anion Gap 14 (12-20) BUN 17 H (9-16) mg/dL Creatinine 0.83 (0.5-1.4) mg/dL Estim Creat Clear Calc 95.0 Estimated GFR > 60 Random Glucose 114 (60-115) mg/dL Calcium 8.8 D (8.4-10.2) mg/dL Total Bilirubin 0.5 (0.0-1.0) mg/dL Direct Bilirubin 0.1 (0.0-0.5) mg/dL AST 35 H (5-31) U/L ALT 37 H (0-31) U/L Alkaline Phosphatase 66 (39-117) U/L Total Protein 6.7 (6.5-8.0) g/dL Albumin 4.0 (3.5-5.0) g/dL Lipase 20 (8-78) U/L Urine Color Yellow Urine Appearance Clear Urine pH 5.5 (5.0-9.0) Ur Specific [place] >= 1.030 H (1.005-1.025) Urine Protein Trace (Neg-Trace) mg/dL Urine Glucose (UA) Negative (Negative) mg/dL Urine Ketones Trace (Negative) mg/dL Urine Blood Negative (Negative) Urine Nitrite Negative (Negative) Ur Leukocyte Esterase Negative (Negative) Independent Interpretation I performed an independent interpretation of an: CT Scan Interpretation: My interpretation is in agreement with the radiologist's impression of this imaging study. EXAMINATION: CT ABDOMEN AND PELVIS WITH CONTRAST? CLINICAL INFORMATION: Abdominal pain. Rule out obstruction.? COMPARISON: Previous CT of the abdomen and pelvis June 2008 TECHNIQUE: Multidetector volumetric images were obtained from the superior aspect of the liver through the pubic symphysis following administration 85 mL of Omnipaque 350 intravenous contrast. Sagittal and coronal reformatted images were obtained on the technologist's workstation.? Oral contrast: Yes This CT examination was performed using dose optimization techniques as appropriate, variously including the following: *Automated exposure control *Adjustment of mA and/or kV according to patient size (this includes techniques or standardized protocols for targeted exams where dose is matched to indication/reason for exam; i.e. extremities or head) *Use of iterative reconstruction technique DLP: 1029 mGy-cm FINDINGS: LUNG BASES: The visualized lung bases are unremarkable.? LIVER, GALLBLADDER, AND BILIARY TREE: The liver is normal in size, shape, and attenuation. No focal hepatic lesion or biliary ductal dilatation is present. The gallbladder is unremarkable with no evidence of radiopaque gallstones, gallbladder wall thickening, or obvious pericholecystic inflammatory changes.? PANCREAS: Unremarkable.? SPLEEN: Unremarkable.? ADRENAL GLANDS: Unremarkable.? KIDNEYS AND URETERS: The kidneys are normal in size, shape, and attenuation. No hydronephrosis, hydroureter, or calculi seen. No perinephric stranding. ? BLADDER: Unremarkable.? GASTROINTESTINAL TRACT: Mild diverticulosis of the colon. No evidence of diverticulitis. The small and large bowel are otherwise unremarkable. The appendix is unremarkable.? ABDOMINAL WALL: No significant hernia is appreciated.? LYMPH NODES: Normal. VASCULAR: Unremarkable. PELVIC VISCERA: Small calcified uterine fibroids. OSSEOUS STRUCTURES: Degenerative changes of the spine. CT/CT abdomen pelvis w IV con IMPRESSION: No evidence of obstruction. Mild diverticulosis of the colon. Small partially calcified uterine fibroids. ? Fleischner guidelines were followed. Dictated By: Jackie Simmons MD Signed By: Electronically signed by Jackie Simmons MD 08/04/22 0934 Discharge Plan Discharge Clinical Impression: Gastritis Patient Disposition: Home, Self-Care Instructions: Gastritis (DC) Additional Instructions: Follow up with your primary care provider and a GI specialist. Return to the emergency department immediately if your symptoms worsen or if you develop any dizziness, shortness of breath, difficulty breathing, chest pain, blurry vision, loss of vision, nausea, vomiting, abdominal pain, fever, chills, back pain, or any other complaints. Prescriptions: New omeprazole 40 mg capsule,delayed release(DR/EC) 40 mg PO DAILY Qty: 30 0RF No Action estradiol 10 mcg insert, dose pack 10 mcg vaginal .COMPLEX Qty: 18 2RF Rx Instructions: 10 mcg vaginally once daily for 2 weeks; then 10 mcg insert vaginally twice WEEKLY (every 3-4 days/same days each week) vaginal; Referrals: [facility] [place] [facility] [Provider Group] (Call to establish and follow up with a GI specialist. ) Star Churchill MD [Primary Care Provider] - Stand Alone Forms: Work/School Release Interventions: ED Discharge Assessment Last Done: 08/04/22 10:06 Discharge Date/Time: 08/04/22 10:08 Print Language: Hungarian
[2022-08-04 07:26] LABS: Appearance Urine Clear; Color Urine Yellow; Glucose Urine UA Negative (Negative); Leukocyte Esterase Urine Negative (Negative); Nitrite Urine Negative (Negative); PH 5.5 (5.0-9.0); Specific Gravity - Urine >= 1.030 (1.005-1.025); Urine Blood Negative (Negative); Urine Ketones Trace mg/dL (Negative); Urine Protein Trace mg/dL (Neg-Trace)
[2022-08-04 07:35] LABS: Alanine Aminotransferase 37 U/L (0-31); Alkaline Phosphatase 66 U/L (39-117); Anion Gap 14 (12-20); Aspartate Amino Transferase 35 U/L (5-31); Bilirubin Direct 0.1 mg/dL (0.0-0.5); Bilirubin Total 0.5 mg/dL (0.0-1.0); Blood Urea Nitrogen 17 mg/dL (9-16); Calcium 8.8 mg/dL (8.4-10.2); Carbon Dioxide 23 mmol/L (22-29); Chloride 107 mmol/L (96-108); Estimated Glomerular Filt Rate > 60; Glucose Random 114 mg/dL (60-115); Lipase 20 U/L (8-78); Potassium 4.8 mmol/L (3.3-5.1); Sodium 139 mmol/L (135-145); Total Protein 6.7 g/dL (6.5-8.0)
[2022-08-04] MEDS: ondansetron HCL 4 MG/2 ML VIAL IVPUSH (08:22)
[2022-08-04] MEDS: iohexoL 350 MG/ML 100 ML INFUS..BTL IV (08:52)
[2022-08-04 08:58] VITALS: BP 129/66; PULSE 83; RESP 14; TEMP 36.9; O2SAT 97
== END 2022-08-04 10:08 | disposition home or self-care (01) ==
PROVIDERS: Emergency Provider Emergency Medicine Emergency Medical Services; PCP Internal Medicine
DX: K29.70 Gastritis, unspecified, without bleeding (principal); R10.13 Epigastric pain
CPT/HCPCS: 36415; 74177; 80048; 80076; 81003; 83690; 85025; 96374; 99284; J2405; Q9967

== ENCOUNTER 2022-08-14 09:27 | Day surgery (SDC) | payer OTHER, SELFPAY ==
--- NOTE | 2022-08-13 12:31 | P.CONAN_ITS ---
Documented by User: Milka Yu NP 08/13/22 12:31 HPI - Anesthesia Eval Consult details Narrative: 57yo F for Upper Endoscopy PMFSH Active Problems Active Problems: All Active Problems (Updated 08/13/22 @ 08:44 by Jennifer Ernandez RN) Lateral meniscus tear (Acute) Osteoarthritis of right knee (Acute) Well woman exam (Acute) Atrophic vaginitis (Acute) Osteoarthritis of left knee (Acute) Sacroiliac joint pain (Acute) Increased BMI (Acute) Past Medical History Medical History Arthritis Hay fever Increased BMI Liver problem Family History Family History Mother Breast cancer Family history of problems with anesthesia: No Surgical History Surgical History History of arthroscopy of right knee History of breast biopsy History of carpal tunnel release of both wrists History of surgical removal of ganglion cyst Hx of colonoscopy Hx of foot surgery Hx of tonsillectomy S/P trigger finger release History of Problems with Anesthesia: No Social History Social History Are you a primary healthcare facility administrator to a significant other at home: No Do you presently have visiting nurse or other home services: No Patient Tobacco Use Status: Former Tobacco user Are you DNR?: No Advance Directives: No Advance Directives Information Provided: Yes Nutrition Risks: No Nutritional Risk Current occupational status: employed 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 Meds Allergies Allergy/AdvReac Type Severity Reaction Status Date / Time No Known Allergies Allergy Verified 08/14/22 09:46 Exam Exam Date and Time: August 13, 2022 1231 Pertinent Lab Results Pertinent Lab Results: Laboratory Tests 08/04/22 08/04/22 07:05 07:05 WBC 5.7 Hgb 14.6 Hct 45.7 Plt Count 287 Sodium 139 Potassium 4.8 Chloride 107 Carbon Dioxide 23 BUN 17 H Creatinine 0.83 Assessment and Plan Assessment Anesthesia Assessment: Chart Reviewed Final Anesthetic Review Family History of Problems with Anesthesia: No History of Problems with Anesthesia: No Documented by User: Nathaly Azar MD 08/14/22 10:03 [facility] Past Medical History Medical History Arthritis Hay fever Increased BMI Liver problem Family History Family History Mother Breast cancer Surgical History Surgical History History of arthroscopy of right knee History of breast biopsy History of carpal tunnel release of both wrists History of surgical removal of ganglion cyst Hx of colonoscopy Hx of foot surgery Hx of tonsillectomy S/P trigger finger release Social History Social History Are you a primary healthcare facility administrator to a significant other at home: No Do you presently have visiting nurse or other home services: No Patient Tobacco Use Status: Former Tobacco user Are you DNR?: No Advance Directives: No Advance Directives Information Provided: Yes Nutrition Risks: No Nutritional Risk Current occupational status: employed 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
[2022-08-14 09:33] VITALS: BMI 42.9
[2022-08-14] MEDS: Lactated Ringers 1,000 ML 100 ML IVCONT (09:51)
[2022-08-14 10:02] VITALS: BP 126/70; PULSE 88; RESP 18; TEMP 36.6; O2SAT 97
--- NOTE | 2022-08-14 10:41 | MHC.SHP ---
Pre-Procedural Eval Section A Date of Service: 08/14/22 The patient is an INPATIENT: No Changes since office visit: No Cold of Flu in the past 2 weeks, No New Medical Problems, No Changes in Medication and No Patient answered all questions The History & Physical has been completed within 30 days and I have reviewed it.: Yes Section B Chief Complaint: Epigastric pain Allergies: Allergies Allergy/AdvReac Type Severity Reaction Status Date / Time No Known Allergies Allergy Verified 08/14/22 09:46 Plan I have reviewed the history and physical and performed a pertinent physical examination on my patient. No changes have occurred unless specified. Time Spent With Patient Time: Total time managing care of this patient today ____ minutes.
--- NOTE | 2022-08-14 11:03 | PM.OP ---
Brief Operative Note Date of Service: 08/14/22 Pre-op diagnosis: gastritis Post-op diagnosis: same Procedure: egd Surgeon: Agus Gates Anesthesia: MAC Was an Director Center used for this Procedure?: No Estimated blood loss (mL): 2 Pathology: other Condition: stable Disposition: PACU
[2022-08-14 11:06] VITALS: BP 137/82; PULSE 92; RESP 16; TEMP 36.6; O2SAT 94
[2022-08-14 11:21] VITALS: BP 121/66; PULSE 85; RESP 16; TEMP 36.5; O2SAT 96
--- NOTE | 2022-08-14 11:35 | OP_ITS ---
DATE OF SERVICE: 08/14/2022 SURGEON: Agus Gates MD INDICATIONS: Gastritis. PREOPERATIVE DIAGNOSIS: POSTOPERATIVE DIAGNOSIS: PROCEDURE PERFORMED: Upper endoscopy with biopsy. ESTIMATED BLOOD LOSS: COMPLICATIONS: ANESTHESIA: Monitored anesthesia care. ASSISTANTS: SPECIMENS: DESCRIPTION OF PROCEDURE: A history and physical was performed. The risks and benefits of the procedure were explained to the patient. Informed consent was obtained. The patient was placed in the left lateral decubitus position. The Olympus video gastroscope was introduced into the esophagus, stomach, and duodenum. Examination was performed. The scope was removed. She tolerated the procedure well and was returned to the recovery area in stable condition. FINDINGS: Esophagus: The esophagus showed a very mild distal esophagitis over the last centimeter of the EG junction. This was biopsied. There was a small sliding hiatal hernia. Stomach: The stomach showed no evidence of masses, ulcers, or polyps. Antral biopsies were obtained to rule out H pylori. Duodenum: The bulb and second portion were normal. IMPRESSION: Esophagitis. RECOMMENDATION: Follow up the biopsy results. MD TIFFANIE Douglas/RHIANNAL / [id number]
== END 2022-08-14 11:45 | disposition home or self-care (01) ==
PROVIDERS: PCP Internal Medicine; Visit Provider Internal Medicine Gastroenterology
PROC: 0DJ08ZZ Inspection of Upper Intestinal Tract, Via Natural or Artificial Opening Endoscopic (ICD-10-PCS; CPT 43235; principal; 2022-08-14 10:50)
DX: R10.13 Epigastric pain (principal); K20.80 Other esophagitis without bleeding; K44.9 Diaphragmatic hernia without obstruction or gangrene; K76.9 Liver disease, unspecified; J30.89 Other allergic rhinitis; Z79.899 Other long term (current) drug therapy; Z87.891 Personal history of nicotine dependence
CPT/HCPCS: 43239; 88305; 88342; J2250

== ENCOUNTER 2022-09-03 21:48 | Emergency (ER) | payer OTHER, SELFPAY ==
[2022-09-03 21:55] VITALS: BP 133/71; PULSE 100; RESP 15; TEMP 36.6; O2SAT 96; BMI 41.6
[2022-09-04 00:27] VITALS: BP 140/67; PULSE 84; RESP 18; TEMP 36.6; O2SAT 98
--- NOTE | 2022-09-04 00:51 | ED.LOWEXIN ---
HPI - Extremity Injury (Lower) General Chief Complaint: Extremity Injury, Lower Stated Complaint: Pulled hamstring? Time Seen by Provider: 09/04/22 00:39 Source: patient and family () Mode of arrival: ambulatory Limitations: no limitations History of Present Illness HPI Narrative: 57-year-old female who presents emergency department for evaluation of pain in her right posterior thigh. The patient was playing kickball pain she states she was running towards [address] [place] when she felt a sudden pop in her right posterior thigh. She states she fell forward and landed on her knees. She was able to get up and walk but had significant pain in her right hamstring area. The patient states that the pain is got progressively worse and is now greater than 10/10. Patient states that she also injured her left knee 1 week prior playing kickball. Related Data Previous Rx's Medication Instructions Recorded estradiol 10 mcg vaginal insert, 10 mcg vaginal .COMPLEX #18 ea 07/04/21 in a starter dose pack omeprazole 40 mg capsule,delayed 40 mg PO DAILY #30 caps 08/04/22 release morphine 15 mg immediate release 15 mg PO Q4-6H PRN pain #10 tabs 09/04/22 tablet Allergies Allergy/AdvReac Type Severity Reaction Status Date / Time No Known Allergies Allergy Verified 08/14/22 09:46 Review of Systems Review of Systems: Yes all other systems are reviewed and are negative PMFSH Past Medical History Medical History Arthritis Hay fever Increased BMI Liver problem Surgical History History of arthroscopy of right knee History of breast biopsy History of carpal tunnel release of both wrists History of surgical removal of ganglion cyst Hx of colonoscopy Hx of foot surgery Hx of tonsillectomy S/P trigger finger release Family History Family History Mother Breast cancer Social History Social History Are you a primary transitional care liaison to a significant other at home: No Do you presently have visiting nurse or other home services: No Alcohol intake: never Patient Tobacco Use Status: Former Tobacco user Smoked in Last 30 Days: No Use of substances other than those prescribed or required for medical reasons: No Advance Directives: No Advance Directives Information Provided: No Patient : No Current occupational status: employed 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 Physical Exam Vital Signs: Vital Signs: Last Vital Signs Temp 98.1 F 09/04/22 01:52 Pulse 83 09/04/22 01:52 Resp 18 09/04/22 01:52 BP 134/67 09/04/22 01:52 Pulse Ox 97 09/04/22 01:52 O2 Del Method Room Air 09/04/22 01:52 BMI result Body Mass Index 41.6 Vital signs were stable General: Awake, alert, female patient, very pleasant cooperative, lying on the stretcher, does not appear to be in distress, answers all questions appropriate Extremity exam: The patient's left knee is ecchymotic and swollen compared to the right. She does have tenderness palpation of the left knee but can flex her knee without limitation. The patient does have an area tenderness along the proximal aspect of the posterior. There is no hematoma in this area. There is no ecchymosis. Medications Administered Discontinued Medications Generic Name Dose Route Start Last Admin Trade Name Freq PRN Reason Stop Dose Admin Ketorolac Tromethamine 15 mg 09/04/22 00:50 09/04/22 01:29 Ketorolac Tromethamine 15 Mg/Ml Vial IVPUSH 09/04/22 00:51 15 mg ONCE STA Administration Morphine Sulfate 4 mg 09/04/22 00:50 09/04/22 01:29 Morphine Sulfate 4 Mg/Ml Cartridge IVPUSH 09/04/22 00:51 4 mg ONCE STA Administration Protocol Morphine Sulfate 4 mg 09/04/22 02:08 09/04/22 02:14 Morphine Sulfate 4 Mg/Ml Cartridge IVPUSH 09/04/22 02:09 4 mg ONCE STA Administration Protocol Medical Decision Making Medical Decision Making MDM Narrative: 57-year-old female who presents emergency department for evaluation of a right posterior thigh hamstring injury that occurred while playing kickball she was running towards [employer]. Patient felt a popping sensation and then developed immediate pain. She did fall to her knees . On physical examination she does have ecchymosis and soft tissue swelling of the left knee but I do not think that she has an acute fractures and she is able to flex the knee. The patient does have an area of point tenderness over her posterior proximal thigh consistent with hamstring muscle injury. Patient stated that her pain was greater than 10/10. Given the severity of her pain, I ordered morphine 4 mg IV and Toradol 15 mg IV. 0234: The patient required a 2nd dose of morphine 4 mg IV. Patient was able to walk with crutches. Patient was discharged home and advised to take Tylenol ibuprofen and for pain not relieved by these medications she was prescribed morphine. She was given printed and verbal instructions and discharged home. 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 Differential Diagnosis Differential diagnosis includes but is not limited to posterior thigh hamstring muscle tear, posterior thigh hamstring tendon tear, left knee contusion Independent Historian Clinical information obtained from an independent historian. History obtained from or confirmed by: Spouse Discharge Plan Discharge Clinical Impression: Right hamstring muscle strain Qualifiers: Encounter type: initial encounter Qualified Code(s): S76.311A - Strain of muscle, fascia and tendon of the posterior muscle group at thigh level, right thigh, initial encounter Contusion of knee, left Qualifiers: Encounter type: initial encounter Qualified Code(s): S80.02XA - Contusion of left knee, initial encounter Patient Disposition: Home, Self-Care Instructions: Hamstring Injury (ED) Additional Instructions: Your presentation and exam is consistent with a hamstring muscle injury-either a muscle tear or muscle strain You also have a contusion to your left knee Apply ice for 15 minutes 4 to 6 times a day over the next 3-4 days to help reduce the pain and swelling in these areas. Use the crutches to reduce the amount of weight that you put on your right leg. Take ibuprofen 200 mg pills, 2 pills every 6 hours as needed for pain. Take Tylenol (acetaminophen) 2 pills every 6 hours as needed for pain. For pain not relieved by ibuprofen or Tylenol take morphine 15 mg pills, 1 pill every 4 hours as needed for pain. This medication will make you sleepy, do not drive or work while taking this medication. Morphine is a narcotic medication and can be addicting. If you are concerned about addiction you can ask the pharmacist for less pills or do not get this prescription filled. Follow-up with your doctor in 2 days. Please return to the emergency department if your symptoms get worse or if you develop any symptoms that are concerning to you. Please see the work note Prescriptions: New morphine 15 mg tablet 15 mg PO Q4-6H PRN (Reason: pain) Qty: 10 0RF Rx Instructions: The patient may ask for partial fill; Partial Fill upon patient request. No Action estradiol 10 mcg insert, dose pack 10 mcg vaginal .COMPLEX Qty: 18 2RF Rx Instructions: 10 mcg vaginally once daily for 2 weeks; then 10 mcg insert vaginally twice WEEKLY (every 3-4 days/same days each week) vaginal; omeprazole 40 mg capsule,delayed release(DR/EC) 40 mg PO DAILY Qty: 30 0RF Stand Alone Forms: Work/School Release
--- NOTE | 2022-09-04 00:56 | MHC.EDTECH ---
This tech applied Ice to pts Right upper thigh,and to left knee per the request of . RN aware
[2022-09-04] MEDS: Morphine Sulfate 4 MG/ML CARTRIDGE IVPUSH ×2 (01:29→02:14)
[2022-09-04] MEDS: Ketorolac Tromethamine 15 MG/ML VIAL IVPUSH (01:29)
[2022-09-04 01:52] VITALS: BP 134/67; PULSE 83; RESP 18; TEMP 36.7; O2SAT 97
--- NOTE | 2022-09-04 02:16 | MHC.EDTECH ---
This tech taught patient how to ambulate with crutches per 's request. Patient ambulated to Bathroom without any difficulty.Patient had minimal amount of pain. This tech assisted patient back onto stretcher patient had a hard time sitting due to pain at the upper right thigh, patient didn't want Ice applied at this time pillow was placed for comfort. RN and Dr. Funes made aware . call bridges within reach
--- NOTE | 2022-09-04 02:25 | PC.NURSE ---
pt assessed after 2 dose s and morphine ivp and toradol , pt reported pain decreased to 6/10, pt also ambulated in halls to bathroom, gait steady with crutches
== END 2022-09-04 02:56 | disposition home or self-care (01) ==
PROVIDERS: Emergency Provider Emergency Medicine Emergency Medical Services; PCP Internal Medicine
DX: S76.311A Strain of muscle, fascia and tendon of the posterior muscle group at thigh level, right thigh, initial encounter (principal); S80.02XA Contusion of left knee, initial encounter; X50.9XXA Other and unspecified overexertion or strenuous movements or postures, initial encounter; Y93.6A Activity, physical games generally associated with school recess, summer camp and children; Y92.328 Other athletic field as the place of occurrence of the external cause; Y99.9 Unspecified external cause status
CPT/HCPCS: 96374; 96375; 96376; 99284; J1885; J2270

== ENCOUNTER 2022-09-10 08:35 | Outpatient (REF) | payer OTHER, SELFPAY | END 2022-09-10 08:36 | disposition home or self-care (01) | LOC: HO.HOSX 08:35 | PROVIDERS: PCP Internal Medicine; Visit Provider Orthopaedic Surgery | DX: S70.12XA Contusion of left thigh, initial encounter (principal); S76.311A Strain of muscle, fascia and tendon of the posterior muscle group at thigh level, right thigh, initial encounter; M25.562 Pain in left knee | CPT/HCPCS: 73560; 73565 ==

== ENCOUNTER 2022-12-09 07:22 | Outpatient (REF) | payer OTHER, SELFPAY ==
--- NOTE | ~2022-12-09 | MR_ITS ---
EXAMINATION: MR KNEE WITHOUT CONTRAST, LEFT CLINICAL INFORMATION: Left knee pain and swelling. COMPARISON: Left knee MRI dated 05/05/2022 and left knee radiographs dated 09/10/2022. TECHNIQUE: MRI of the knee without contrast was performed using routine sequences on a high-field scanner. FINDINGS: MENISCI: Medial Meniscus: Attenuation and irregularity of the posterior horn and root, unchanged and consistent with irregular tearing. The meniscal body is medially extruded with a nondisplaced oblique tibial articular surface tear, slightly more prominent when compared to the prior examination. Lateral Meniscus: Intact. No new lateral meniscal tear. LIGAMENTS: Cruciate: Intact. Collateral: Intact. EXTENSOR MECHANISM: Superior and inferior patellar enthesophytes. Intact quadriceps and patellar tendons. Normal patellofemoral alignment. Fluid within the soft tissues anterior to the patellar tendon, new when compared to the prior examination. Findings could represent a soft tissue hematoma versus early prepatellar bursitis. ARTICULAR CARTILAGE/BONE: Patellofemoral Compartment: Patellar articular cartilage signal heterogeneity with areas of median ridge pklp-vuhv-knejjxvnc loss and mild subchondral cystic change. Central trochlear signal heterogeneity. Small marginal osteophytes. Findings are similar when compared to the prior examination. Medial Compartment: Full-thickness weightbearing articular cartilage loss with underlying subchondral cystic change and associated marrow edema. Marginal osteophytes. Findings are slightly progressed when compared to the prior examination. Lateral Compartment: Mild articular cartilage signal heterogeneity and surface irregularity with small marginal osteophytes, unchanged. JOINT FLUID AND BURSAE: Small joint effusion and trace Aranda's cyst. MR/MR knee LT wo con IMPRESSION: 1. Irregular tearing of the medial meniscus posterior horn and root, unchanged. Medial extrusion of the meniscal body with a nondisplaced oblique tibial articular surface tear, slightly more prominent when compared to the prior examination. 2. Fluid within the soft tissues anterior to the patellar tendon, new when compared to the prior examination. Findings could represent a soft tissue hematoma versus early prepatellar bursitis. 3. Lwtspbde-oc-shlbae medial as well as mild patellofemoral and lateral compartment osteoarthritis, slightly progressed when compared to the prior examination. Small joint effusion and trace Aranda's cyst.
== END 2022-12-09 07:23 | disposition home or self-care (01) ==
LOC: HO.MRI 07:22
PROVIDERS: PCP Internal Medicine; Visit Provider Orthopaedic Surgery
DX: S76.112A Strain of left quadriceps muscle, fascia and tendon, initial encounter (principal)
CPT/HCPCS: 73721

== ENCOUNTER 2023-01-26 16:00 | Outpatient (RCR) | payer OTHER, SELFPAY ==
--- NOTE | 2022-12-16 16:25 | MHC.PT.EP ---
[facility] [place] Office [place] Office [place] Office [address] [place] [address] [facility] [phone] F: [phone] F: [phone] F: [phone] F: [phone] Physical Therapy Plan of Care Date of Evaluation: 12/15/22 Date of Surgery: n/a Diagnosis: Strain of unspecified quadriceps muscle, fascia, and tendon, initial encounter Quadriceps muscle rupture Assessment: Pt is a very pleasant 57yo F who injured her L knee on 09/03/22 after falling while playing kickball. She presents to PT with current impairments in pain, decreased L knee ROM, decreased quad strength, decreased hip/glute strength, soft tissue restrictions, and impaired gait. She is limited functionally by kneeling, squat, crossing legs, LE ADLs, prolonged standing, prolonged walking, walking on uneven surfaces, and stair navigation. She is an excellent candidate for skilled PT in order to address current impairments to facilitate return to PLOF. She is recommended to be seen 2x/week for 4 weeks and will be reassessed at that time Frequency and Duration: The patient will be seen 2x/week for 4 weeks Short Term Goals: Pt will be I with HEP to promote self management of symptoms Pt will improve L quad strength by 1/2 grade Mcfp Goals: Pt will achieve full ROM and strength all planes of L knee with minimal to no discomfort Pt will ambulate >1 hour on even and uneven surfaces with minimal to no discomfort Pt will demonstrate improvements in function as evidenced by statistically significant improvement in LEFI outcome measure Treatment Plan: Modalities to reduce pain, spasms and effusion. Manual therapy to restore motion and function. Therapeutic exercise to improve strength and flexibility. Neuromuscular re-education for posture and balance. Therapeutic activities to return to functional activities of daily living. Electronically signed by: Hortencia Uribe, PT, DPT Please sign and return to therapist. Thank you for your referral.
--- NOTE | 2023-05-24 10:46 | MHC.PT.DC ---
[facility] [place] Office [employer] [facility] [place] [facility] [address] Perico Louise [address] [phone] F: [phone] F: [phone] F: [phone] F: [phone] Physical Therapy Discharge Report Diagnosis: Strain of unspecified quadriceps muscle, fascia, and tendon, initial encounter Quadriceps muscle rupture Date of Surgery: n/a Date of Evaluation: 12/15/22 Date of Discharge: 05/24/23 Treatments to Date: 7 Cancellations to Date: No Shows to Date: 3 Discharge Status: Visit Non-compliance Discharge Summary: Pt was seen for skilled PT from 12/15/22-01/26/23. Pt had 3 no show appointments for her last 3 scheduled appointments. Pt is being D/C from skilled PT per [facility] attendance policy and visit non compliance. Pt current level of function unknown at this time Electronically signed by: Hortencia Uribe, PT, DPT Please sign and return to therapist. Thank you for your referral.
== END 2023-05-24 10:46 | disposition home or self-care (01) ==
LOC: HO.PT 16:00
PROVIDERS: PCP Internal Medicine; Visit Provider Orthopaedic Surgery
DX: S76.112A Strain of left quadriceps muscle, fascia and tendon, initial encounter (principal)
CPT/HCPCS: 97110; 97140; 97162

== ENCOUNTER → 2023-03-05 10:15 | Outpatient (BNVA) | payer OTHER, SELFPAY | PROVIDERS: PCP Internal Medicine | DX: Z13.89 Encounter for screening for other disorder (principal) | CPT/HCPCS: 99204 ==

== ENCOUNTER → 2023-03-10 09:03 | Outpatient (BNVA) | payer OTHER, SELFPAY | PROVIDERS: PCP Internal Medicine; Visit Provider Physician Assistant | DX: Z13.89 Encounter for screening for other disorder (principal) | CPT/HCPCS: 99213 ==

== ENCOUNTER → 2023-04-14 09:53 | Outpatient (BNVA) | payer OTHER, SELFPAY | PROVIDERS: PCP Internal Medicine; Visit Provider Physician Assistant | DX: Z13.89 Encounter for screening for other disorder (principal) | CPT/HCPCS: 99213 ==

== ENCOUNTER 2023-05-10 15:12 | Outpatient (REF) | payer OTHER, SELFPAY ==
[2023-05-10 16:22] LABS: Alanine Aminotransferase 27 U/L (0-31); Albumin Level 4.1 g/dL (3.5-5.0); Alkaline Phosphatase 80 U/L (39-117); Anion Gap 12 (12-20); Aspartate Amino Transferase 18 U/L (5-31); Bilirubin Total 0.2 mg/dL (0.0-1.0); Blood Urea Nitrogen 15 mg/dL (9-16); Carbon Dioxide 24 mmol/L (22-29); Chloride 108 mmol/L (96-108); Estimated Glomerular Filt Rate > 60; Glucose Random 96 mg/dL (60-115); Potassium 4.5 mmol/L (3.3-5.1); Sodium 139 mmol/L (135-145)
[2023-05-10 16:27] LABS: Erythrocyte Sedimentation Rate 14 MM/HR (0-20)
== END 2023-05-10 15:13 | disposition home or self-care (01) ==
LOC: HO.LAB 15:12
PROVIDERS: PCP Internal Medicine; Visit Provider Internal Medicine
DX: G44.52 New daily persistent headache (NDPH) (principal)
CPT/HCPCS: 36415; 80053; 85652; 86140

== ENCOUNTER 2023-05-10 15:48 | Emergency (ER) | payer OTHER, SELFPAY ==
--- NOTE | ~2023-05-10 | CT_ITS ---
EXAMINATION: CT ANGIOGRAM HEAD CLINICAL INFORMATION: Reason for Exam acute onset headache yesterday COMPARISON: Simultaneously performed CT head TECHNIQUE: Initial noncontrast director of annual giving imaging of the head and neck was performed. Comparison is made with noncontrast head CT from earlier today. Test bolus sequences followed by intravenous administration 75 mL of Omnipaque 350. Helical imaging was performed in the axial plane from the skull base to the skull vertex. Delayed postcontrast imaging of the head was also performed. The data was processed at the invasive cardiovascular technologist's workstation for generation of MIP sequences. Angled MIPs and volume rendered reformatted images were also generated at an offline 3D workstation. Stenoses are assessed in accordance with Vegas et al. Quantification of Carotid Stenosis on CT Angiography. AJR 2006. 27(1):13-19. This CT examination was performed using dose optimization techniques as appropriate, variously including the following: *Automated exposure control *Adjustment of mA and/or kV according to patient size (this includes techniques or standardized protocols for targeted exams where dose is matched to indication/reason for exam; i.e. extremities or head) *Use of iterative reconstruction technique DLP: 2074 mGy-cm FINDINGS: CT HEAD: No abnormal intracranial enhancement. Please see separately dictated CT scan of the head for additional intracranial findings. CTA HEAD: Anterior circulation: Right internal carotid artery: No hemodynamically significant stenosis. Right middle cerebral artery: No hemodynamically significant stenosis. 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 Left internal carotid artery: No hemodynamically significant stenosis. Left middle cerebral artery: No hemodynamically significant stenosis. Left anterior cerebral artery: No hemodynamically significant stenosis. Posterior circulation: Right vertebral artery: No hemodynamically significant stenosis. Left vertebral artery: No hemodynamically significant stenosis. Basilar artery: No hemodynamically significant stenosis. Right posterior cerebral artery: No hemodynamically significant stenosis. Left posterior cerebral artery: No hemodynamically significant stenosis. No high flow vascular malformation or significant aneurysmal dilatation is visualized. The major dural venous sinuses are grossly within normal limits given arterial technique. CT/CT angio head IMPRESSION: No hemodynamically significant stenosis, proximal vessel occlusion, or significant aneurysmal dilatation.
--- NOTE | ~2023-05-10 | CT_ITS ---
EXAMINATION: CT HEAD WITHOUT CONTRAST CLINICAL INFORMATION: Headache. COMPARISON: CT head May 10, 2023 TECHNIQUE: Contiguous axial imaging was performed from the skull base to vertex without intravenous administration of contrast. Coronal and sagittal reformatted images are performed at the CT scanner. [This CT examination was performed using dose optimization techniques as appropriate, variously including the following: *Automated exposure control *Adjustment of mA and/or kV according to patient size (this includes techniques or standardized protocols for targeted exams where dose is matched to indication/reason for exam; i.e. extremities or head) *Use of iterative reconstruction technique] DLP: 2074 mGy-cm. FINDINGS: There is no evidence of acute intracranial hemorrhage or territorial infarction. No abnormal mass-effect or midline shift is seen. Stephenson to white matter differentiation is well preserved. No extra-axial fluid collections are identified. The ventricles are normal in size. There is no abnormal attenuation within the brain parenchyma. There is no osseous abnormality. Lobular mucosal thickening at the anterior left maxillary sinus. Mastoid air cells and middle ear cavities are normally aerated. CT/CT head/brain wo IV con IMPRESSION: No acute intracranial pathology.
[2023-05-10 16:20] VITALS: BP 177/131; PULSE 90; RESP 16; TEMP 36.4; O2SAT 98; BMI 42.8
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
[2023-05-10 16:24] VITALS: BP 146/85
[2023-05-10 17:13] LABS: MANUAL DIFF FLAG NO
[2023-05-10 17:14] LABS: Basophils Percent Auto 0.4 % (0-2); Eosinophils Absolute Auto 0.2 X10*3/uL (0.0-0.4); Eosinophils Percent Auto 2.2 % (0-4); Hematocrit 43.9 % (37.0-47.0); Hemoglobin 13.9 g/dl (12.0-16.0); Imm Gran Abs Auto 0.02 X10*3/uL (0.00-0.03); Imm Gran Pct Auto 0.3 % (0.0-0.4); Lymphocytes Absolute Auto 1.9 X10*3/uL (1.2-4.9); Lymphocytes Percent Auto 23.7 % (20-40); Mean Corpuscular HGB Conc 31.7 g/dl (31.0-35.0); Mean Corpuscular Hemoglobin 26.3 pg (27.0-33.0); Mean Corpuscular Volume 83.1 fL (80.0-98.0); Mean Platelet Volume 9.6 fL (9.4-12.3); Monocytes Absolute Auto 0.5 X10*3/uL (0.1-1.2); Monocytes Percent Auto 6.9 % (2-11); Neutrophils Absolute Auto 5.2 x10*3/uL (2.0-8.3); Neutrophils Percent Auto 66.5 % (45-73); Platelet Count 331 X10*3/uL (160-400); Red Blood Count 5.28 X10*6/uL (4.20-5.50); Red Cell Distribution Width 13.8 % (11.0-16.0); White Blood Count 7.8 X10*3/uL (4.8-10.8)
[2023-05-10 17:24] LABS: INTERNATIONAL NORM RATIO 0.9 (0.9-1.1); Prothrombin Time 11.3 SEC (11.1-13.3)
[2023-05-10 17:27] LABS: Partial Thromboplastin Time 31.2 SEC (26.0-36.8)
[2023-05-10 17:34] LABS: Alanine Aminotransferase 27 U/L (0-31); Albumin Level 4.1 g/dL (3.5-5.0); Alkaline Phosphatase 77 U/L (39-117); Anion Gap 12 (12-20); Aspartate Amino Transferase 18 U/L (5-31); Bilirubin Total 0.3 mg/dL (0.0-1.0); Blood Urea Nitrogen 15 mg/dL (9-16); Calcium 9.4 mg/dL (8.4-10.2); Carbon Dioxide 25 mmol/L (22-29); Chloride 109 mmol/L (96-108); Estimated Glomerular Filt Rate > 60; Glucose Random 93 mg/dL (60-115); Magnesium 2.2 mg/dL (1.6-2.6); Potassium 4.5 mmol/L (3.3-5.1); Sodium 141 mmol/L (135-145); Total Protein 7.1 g/dL (6.5-8.0)
[2023-05-10 20:41] VITALS: BP 141/78; PULSE 78; RESP 18; TEMP 36.5; O2SAT 98
[2023-05-10] MEDS: Acetaminophen 325 MG TABLET 650 MG PO (20:45)
--- NOTE | 2023-05-10 21:18 | PC.NURSE ---
Two failed attempts at obtaining iv line. Different nurse will attempt. Pending CT-scan
[2023-05-10] MEDS: iohexoL 350 MG/ML 100 ML INFUS..BTL 75 ML IV (22:12)
[2023-05-10 22:49] VITALS: BP 115/70; PULSE 77; RESP 16; TEMP 36.7; O2SAT 95
[2023-05-10] MEDS: Butalb/Acetamin/Caff 50/325/40 TABLET 1 TAB PO (23:12)
== END 2023-05-10 23:46 | disposition home or self-care (01) ==
PROVIDERS: Physician Assistant Medical; Emergency Provider Internal Medicine; PCP Internal Medicine
DX: R51.9 Headache, unspecified (principal)
CPT/HCPCS: 36415; 70450; 70496; 80053; 83735; 85025; 85610; 85730; 99284; 99285; Q9967

== ENCOUNTER 2023-07-15 15:45 | Outpatient (REF) | payer OTHER, SELFPAY | END 2023-07-15 15:46 | disposition home or self-care (01) | LOC: HO.MAMMO 15:45 | PROVIDERS: Visit Provider Internal Medicine | DX: Z12.31 Encounter for screening mammogram for malignant neoplasm of breast (principal) | CPT/HCPCS: 77063; 77067 ==

== ENCOUNTER → 2023-07-15 15:45 | Outpatient (BNV) | payer OTHER, SELFPAY | PROVIDERS: Visit Provider Radiology Diagnostic Radiology | DX: Z12.31 Encounter for screening mammogram for malignant neoplasm of breast (principal) | CPT/HCPCS: 77063; 77067 ==

== ENCOUNTER 2023-08-10 06:08 | Outpatient (REF) | payer OTHER, SELFPAY ==
[2023-08-10 06:25] LABS: MANUAL DIFF FLAG NO
[2023-08-10 08:05] LABS: Basophils Percent Auto 0.7 % (0-2); Eosinophils Absolute Auto 0.2 X10*3/uL (0.0-0.4); Eosinophils Percent Auto 3.6 % (0-4); Hematocrit 42.8 % (37.0-47.0); Hemoglobin 13.7 g/dl (12.0-16.0); Imm Gran Abs Auto 0.02 X10*3/uL (0.00-0.03); Imm Gran Pct Auto 0.3 % (0.0-0.4); Lymphocytes Absolute Auto 1.6 X10*3/uL (1.2-4.9); Lymphocytes Percent Auto 27.5 % (20-40); Mean Corpuscular Hemoglobin 27.3 pg (27.0-33.0); Mean Corpuscular Volume 85.4 fL (80.0-98.0); Mean Platelet Volume 10.1 fL (9.4-12.3); Monocytes Absolute Auto 0.5 X10*3/uL (0.1-1.2); Monocytes Percent Auto 8.8 % (2-11); Neutrophils Absolute Auto 3.4 x10*3/uL (2.0-8.3); Neutrophils Percent Auto 59.1 % (45-73); Platelet Count 329 X10*3/uL (160-400); Red Blood Count 5.01 X10*6/uL (4.20-5.50); Red Cell Distribution Width 14.7 % (11.0-16.0); White Blood Count 5.8 X10*3/uL (4.8-10.8)
[2023-08-10 08:41] LABS: Alanine Aminotransferase 23 U/L (0-31); Alkaline Phosphatase 80 U/L (39-117); Anion Gap 15 (12-20); Aspartate Amino Transferase 19 U/L (5-31); Bilirubin Total 0.4 mg/dL (0.0-1.0); Blood Urea Nitrogen 15 mg/dL (9-16); Calcium 9.2 mg/dL (8.4-10.2); Carbon Dioxide 23 mmol/L (22-29); Chloride 110 mmol/L (96-108); Estimated Glomerular Filt Rate > 60; Glucose Fasting 101 mg/dL (60-99); Phosphorus 2.7 mg/dL (2.7-4.5); Potassium 4.9 mmol/L (3.3-5.1); Sodium 143 mmol/L (135-145); Total Protein 6.8 g/dL (6.5-8.0)
[2023-08-10 09:00] LABS: TSH reflex Free T4 0.99 uIU/mL (0.32-4.0)
[2023-08-11 12:18] LABS: CRP High Sensitivity 3.9 mg/L
[2023-08-11 20:28] LABS: Lyme Abs Screen <0.90 index
== END 2023-08-10 06:09 | disposition home or self-care (01) ==
LOC: HO.LAB 06:08
PROVIDERS: PCP Internal Medicine; Visit Provider Physician Assistant Surgical
DX: R53.83 Other fatigue (principal)
CPT/HCPCS: 36415; 80053; 84100; 84443; 85025; 86141; 86617; 86618

== ENCOUNTER 2023-09-14 11:17 | Outpatient (AMB) | payer OTHER, SELFPAY ==
--- NOTE | 2023-09-14 10:39 | A.OFFVIS_ITS ---
Intake Visit Reasons: Discuss ABD CT results Allergies No Known Allergies Allergy (Verified 08/14/22 09:46) HPI Comments Details: Patient presents for evaluation of left upper quadrant/left chest pain and pressure. This has been going on for several years time but over the last several months has become much more frequent and much more symptomatic. She feels as if her stomach is up in her chest. No nausea or vomiting. No change in bowel habits. Patient has never been jaundiced before. Associated with meals where the symptoms have become quite severe and patient is now seeking further evaluation. Past medical history none Past surgical history none Medications none Allergies none Social history noncontributory [facility] Medical History Quadriceps muscle rupture Hay fever Increased BMI Arthritis Liver problem Surgical History Hx of colonoscopy Hx of foot surgery History of arthroscopy of right knee History of surgical removal of ganglion cyst History of carpal tunnel release of both wrists S/P trigger finger release History of breast biopsy Hx of tonsillectomy Family History Mother Breast cancer Social History Are you a primary managed care director to a significant other at home: No Do you presently have visiting nurse or other home services: No Alcohol intake: current Alcohol intake frequency: a few times a week Alcohol type: wine Patient Tobacco Use Status: Former Tobacco user Current occupational status: employed Current occupation: [employer]- right handed Female Reproductive History Menstrual Age of Menarche: 13 Physical Exam Neck Other: No cervical periclavicular adenopathy Chest Other: Chest breath sounds bilaterally, HS 1 in 2 GI Other: Abdomen mildly corpulent, soft, nontender Assessment & Plan Assessment & Plan (1) Paraesophageal hernia: Code(s): K44.9 - Diaphragmatic hernia without obstruction or gangrene Category: Surgical Plan Patient's symptom complex is highly suggestive of a possible hiatal hernia/paraesophageal hernia with stomach in the chest. Current recommendation is to arrange for a CT scan of the chest and direct further therapy based on these results. Patient agrees with the plan. Arrangements for follow up were made after the above-mentioned scan is completed. All questions answered. Coding Level of Care Code New Pt Level 4 (04273) Diagnoses Paraesophageal hernia K44.9
== END 2023-09-14 11:18 | disposition home or self-care (01) ==
LOC: HO.HGS 11:17
PROVIDERS: PCP Internal Medicine; Visit Provider Surgery
DX: K44.9 Diaphragmatic hernia without obstruction or gangrene (principal)
CPT/HCPCS: 99203

== ENCOUNTER → 2023-09-14 11:17 | Outpatient (BNVA) | payer OTHER, SELFPAY | PROVIDERS: PCP Internal Medicine; Visit Provider Surgery | DX: K44.9 Diaphragmatic hernia without obstruction or gangrene (principal) ==

== ENCOUNTER 2023-09-20 10:29 | Outpatient (REF) | payer OTHER, SELFPAY ==
--- NOTE | ~2023-09-20 | CT_ITS ---
EXAMINATION: CT CHEST WITHOUT AND WITH CONTRAST CLINICAL INFORMATION: Diaphragmatic hernia without obstruction or gangrene. Evaluate for para-esophageal hernia/gastric volvulus COMPARISON: CT abdomen pelvis 08/04/2022 TECHNIQUE: Multidetector volumetric CT imaging of the chest was obtained before and after the administration of 65 mL of Omnipaque 350 intravenous contrast without immediate adverse reactions. Axial MIP volume rendering provided. Sagittal and coronal reformatted images were obtained. This CT examination was performed using dose optimization techniques as appropriate, variously including the following: *Automated exposure control *Adjustment of mA and/or kV according to patient size (this includes techniques or standardized protocols for targeted exams where dose is matched to indication/reason for exam; i.e. extremities or head) *Use of iterative reconstruction technique DLP: 400 mGy-cm FINDINGS: LUNGS: The lungs are clear with no evidence of inflammation or nodules. MEDIASTINUM: The mediastinum is normal. CORONARY ARTERY CALCIFICATION: None visualized on this study. PLEURA: There is no pleural effusion. No pleural mass or thickening. AXILLA: No lymphadenopathy. UPPER ABDOMEN: Unremarkable. No diaphragmatic hernia is seen. No hiatal hernia is detected. OSSEOUS STRUCTURES: Unremarkable. CT/CT chest wo/w IV con IMPRESSION: No evidence of a diaphragmatic hernia. No hiatal hernia is seen. Fleischner guidelines were followed.
[2023-09-20] MEDS: iohexoL 350 MG/ML 100 ML INFUS..BTL 65 ML IV (11:58)
[2023-09-21 09:03] LABS: Creatinine POC 0.8 mg/dL (0.5-1.4); GFR POC > 60
== END 2023-09-20 10:30 | disposition home or self-care (01) ==
LOC: HO.CT 10:29
PROVIDERS: Visit Provider Surgery
DX: K44.9 Diaphragmatic hernia without obstruction or gangrene (principal)
CPT/HCPCS: 71270; 82565; Q9967

== ENCOUNTER → 2023-10-29 14:02 | Outpatient (BNVA) | payer OTHER, SELFPAY | PROVIDERS: PCP Internal Medicine | DX: Z77.21 Contact with and (suspected) exposure to potentially hazardous body fluids (principal) | CPT/HCPCS: 99202 ==

== ENCOUNTER 2024-06-08 15:08 | Outpatient (AMB) | payer OTHER, SELFPAY ==
--- NOTE | 2024-06-08 15:08 | A.OFFVIS_ITS ---
Vital Signs 3 06/08/24 15:20 Height 5 ft 5 in Weight 246 lb BMI 40.9 BP 147/88 H Blood Pressure Location Lt brachial Position Sitting Pulse 92 Intake Visit Reasons: Cysts on (R) arm and leg Intake Note: Patient is seen in office for evaluation of a cyst of the right arm and leg. Pt c/o:upper arm cyst, sore- upper leg is more noticeable, onset for years, denies redness, discharge, hot to the touch, had cyst removed in the back (benign) ref ? Project Engineering Director Required: No Accompanied by: Self / Same As Patient Allergies No Known Allergies Allergy (Verified 06/08/24 15:14) Medication List - Last Reconciled 06/13/24 by Adolph Mercedes MD estradiol vaginally twice WEEKLY (every 3-4 days/same days each week) vaginal; tirzepatide (Mounjaro) 17 mg subcut QWEEK HPI Comments Details: 59-year-old female presenting with 2 skin lumps 1 located in the upper arm right side in the 2nd located in the upper leg right side. Both have gradually increased in size and are causing discomfort. Patient has requested excision of the 2 lesions. She denies any bleeding or discharge from either location. She feels she has lost some weight which may have made the lesion more noticeable. [facility] Medical History Quadriceps muscle rupture Hay fever Increased BMI Arthritis Liver problem Surgical History Hx of colonoscopy Hx of foot surgery History of arthroscopy of right knee History of surgical removal of ganglion cyst History of carpal tunnel release of both wrists S/P trigger finger release History of breast biopsy Hx of tonsillectomy Family History Mother Breast cancer Social History Are you a primary grounds caretaker to a significant other at home: No Do you presently have visiting nurse or other home services: No Alcohol intake: current Alcohol intake frequency: a few times a week Alcohol type: wine Patient Tobacco Use Status: Former Tobacco user Current occupational status: employed Current occupation: [employer]- right handed Female Reproductive History Menstrual Age of Menarche: 13 Review of Systems Const All systems reviewed & are unremarkable except as noted in HPI and below Physical Exam Vital Signs: Last Vital Signs Pulse 92 06/08/24 15:20 BP 147/88 H 06/08/24 15:20 BMI result Body Mass Index 40.9 Const General: no acute distress Nutritional Appearance: well nourished Orientation/consciousness: patient oriented x3 Limitations: no limitations Resp Effort & Inspection: normal respiratory effort, no audible wheezes, no cough and no respiratory distress Neuro General: patient oriented x3 Extrem Shoulder/upper arm images: 2 1. 1 cm lesion subcutaneous tissue right upper arm Upper/lower leg/hip images: 2 1. 1 cm soft tissue subcutaneous mass right thigh Office Procedures Excision Details: Preoperative diagnosis: Soft tissue mass right upper arm and right thigh Postoperative diagnosis: Same Procedure: Excision of soft tissue mass right upper arm and right thigh Surgeon: Adolph Mercedes MD Brim Pouncer Machine Operator: None Anesthesia: Lidocaine 1% with epinephrine Indications for procedure: Enlarging soft tissue mass right upper arm and right thigh with some discomfort with palpation. Operative findings: Lipoma right upper arm and right thigh Specimen: Lipoma right upper arm and right thigh Estimated blood loss: 2 mL Complications: None Procedure details: Patient was placed in the procedure room in the supine position. The site of surgery was confirmed by the patient. After assuring informed consent the skin was prepped with Betadine and draped in a sterile fashion. Local anesthesia was was infiltrated over the lesion in the right upper arm and an elliptical incision created around the lesion. The incision was carried out through subcutaneous tissue up to the palpable lesion which appeared to be a lipoma. Sharp dissection was then used to excise the lesion completely from the surrounding subcutaneous tissue. Findings were consistent with a solitary lipoma. This was sent to pathology for further examination. Skin was then closed using interrupted 4-0 Polysorb sutures. Wound was then covered with Steri-Strips, 2 x 2 gauze and Tegaderm. Attention was then directed to the right lateral thigh were again local anesthesia was infiltrated around the lesion. Incision was then made directly over the lesion and carried down through subcutaneous tissue up to the palpable lipoma. This was then sharply excised from the surrounding subcutaneous tissue and excised. The lesion was passed to pathology for further examination. Skin was again closed using interrupted 4-0 Polysorb sutures. Steri-Strips, 2 x 2 gauze and Tegaderm were then applied. The patient tolerated the procedure well and was discharged in stable condition. 55561-wbqqg/arms/legs 0.6-1cm (1 cm lesion right upper arm, 1 cm lesion right thigh) Additional procedure code (CPT) needed Assessment & Plan Assessment & Plan (1) Lipoma: Code(s): D17.9 - Benign lipomatous neoplasm, unspecified Category: Medical Qualifiers: Lipoma location: upper extremity Laterality: right Qualified Code(s): D17.21 - Benign lipomatous neoplasm of skin and subcutaneous tissue of right arm Plan 59-year-old female status post excision of a lipoma of the right upper arm and right thigh today. She tolerated the procedure well. Findings were consistent with lipoma. She should follow up in 1 week or p.r.n.. Orders: Orders 2 Surgical 06/08/24 D17.9 - Benign lipomatous neoplasm, unspecified Coding Level of Care Code Procedure Only Diagnoses Lipoma of right upper extremity D17.21 Lipoma location: upper extremity Laterality: right CPT Codes Trunk/Arms/Legs - CPT: 00561-wuigt/arms/legs 0.6-1cm ([id number])
[2024-06-08 15:20] VITALS: BP 147/88; PULSE 92; BMI 40.9
== END 2024-06-08 16:06 | disposition home or self-care (01) ==
LOC: HO.HGS 15:09
PROVIDERS: PCP Internal Medicine; Visit Provider Surgery
DX: D17.21 Benign lipomatous neoplasm of skin and subcutaneous tissue of right arm (principal); D17.23 Benign lipomatous neoplasm of skin and subcutaneous tissue of right leg
CPT/HCPCS: 11402

== ENCOUNTER 2024-06-08 15:08 | Outpatient (REF) | payer OTHER, SELFPAY | END 2024-06-08 15:09 | disposition home or self-care (01) | LOC: HO.LAB 15:08 | PROVIDERS: PCP Internal Medicine; Visit Provider Surgery | DX: D17.21 Benign lipomatous neoplasm of skin and subcutaneous tissue of right arm (principal) | CPT/HCPCS: 11402; 88304 ==

== ENCOUNTER 2024-08-28 07:25 | Emergency (ER) | payer OTHER, SELFPAY ==
--- NOTE | ~2024-08-28 | XR_ITS ---
EXAMINATION: XR CHEST CLINICAL INFORMATION: RUQ pain COMPARISON: None. Correlation made with CT chest 09/20/2023. TECHNIQUE: 2 views of the chest were obtained. FINDINGS: The cardiac, hilar, and mediastinal contours are normal. The lungs are clear bilaterally. There is no pneumothorax or pleural effusion. There is no focal osseous or soft tissue abnormality. XR/XR chest 2V IMPRESSION: No active pulmonary disease. Electronically signed by: Poncho Marino MD 08/28/2024 09:50 AM EDT
--- NOTE | ~2024-08-28 | US_ITS ---
EXAMINATION: US ABDOMEN LIMITED CLINICAL INFORMATION: Right upper quadrant pain. COMPARISON: None available. TECHNIQUE: Real-time imaging of the right upper quadrant abdominal viscera. FINDINGS: PANCREAS: Visualized portions are unremarkable. LIVER: Liver is mildly enlarged. The right hepatic lobe measures 18.0 cm. The liver contour is normal. There is diffuse increased liver parenchymal echogenicity, consistent with hepatic steatosis. No focal hepatic lesion. There is no intrahepatic biliary duct dilatation seen. GALLBLADDER: The gallbladder is physiologically distended without evidence of stones, sludge, polyps, wall thickening or pericholecystic fluid. COMMON BILE DUCT: Normal in caliber measuring 0.7 cm in diameter. RIGHT KIDNEY: No hydronephrosis. No renal calculi or focal parenchymal lesions. The kidney measures 10.5 cm in maximum dimension. Mild pelvic fullness is present, nonspecific. FREE FLUID: None. US/US abdomen limited IMPRESSION: 1. Normal gallbladder and bile ducts. 2. Mild hepatic enlargement and increased echogenicity, most likely related to hepatic steatosis. No focal hepatic lesion. 3. Mild pelvic fullness of the right kidney, nonspecific. No gross hydronephrosis. Electronically signed by: Poncho Marino MD 08/28/2024 10:42 AM EDT
[2024-08-28 07:45] VITALS: BP 141/75; PULSE 79; RESP 18; TEMP 36.5; O2SAT 98; BMI 40.6
--- NOTE | 2024-08-28 07:49 | ECG_ITS ---
Test Reason : abd pain Blood Pressure : */* mmHG Vent. Rate : 78 BPM Atrial Rate : 78 BPM P-R Int : 136 ms QRS Dur : 84 ms QT Int : 374 ms P-R-T Axes : 58 38 30 degrees QTcB Int : 426 ms Normal sinus rhythm Normal ECG No previous ECGs available Referred By: Generic ED Physician Electronically Signed By: Tal Baker
[2024-08-28 08:05] LABS: MANUAL DIFF FLAG NO
[2024-08-28 08:07] LABS: Basophils Absolute Auto 0.1 X10*3/uL (0.0-0.2); Basophils Percent Auto 0.8 % (0-2); Eosinophils Absolute Auto 0.1 X10*3/uL (0.0-0.4); Eosinophils Percent Auto 2.3 % (0-4); Hematocrit 44.7 % (37.0-47.0); Hemoglobin 14.1 g/dl (12.0-16.0); Imm Gran Abs Auto 0.02 X10*3/uL (0.00-0.03); Imm Gran Pct Auto 0.3 % (0.0-0.4); Lymphocytes Absolute Auto 1.5 X10*3/uL (1.2-4.9); Lymphocytes Percent Auto 24.9 % (20-40); Mean Corpuscular HGB Conc 31.5 g/dl (31.0-35.0); Mean Corpuscular Hemoglobin 26.8 pg (27.0-33.0); Mean Corpuscular Volume 84.8 fL (80.0-98.0); Mean Platelet Volume 9.3 fL (9.4-12.3); Monocytes Absolute Auto 0.5 X10*3/uL (0.1-1.2); Monocytes Percent Auto 8.4 % (2-11); Neutrophils Absolute Auto 3.9 x10*3/uL (2.0-8.3); Neutrophils Percent Auto 63.3 % (45-73); Platelet Count 327 X10*3/uL (160-400); Red Blood Count 5.27 X10*6/uL (4.20-5.50); Red Cell Distribution Width 14.9 % (11.0-16.0); White Blood Count 6.1 X10*3/uL (4.8-10.8)
[2024-08-28 08:12] VITALS: BP 133/79; PULSE 80; RESP 16; TEMP 36.6; O2SAT 96
[2024-08-28 08:21] LABS: Alanine Aminotransferase 68 U/L (0-31); Albumin Level 4.3 g/dL (3.5-5.0); Alkaline Phosphatase 95 U/L (39-117); Anion Gap 14 (12-20); Aspartate Amino Transferase 93 U/L (5-31); Bilirubin Total 0.4 mg/dL (0.0-1.0); Blood Urea Nitrogen 15 mg/dL (9-16); Calcium 9.6 mg/dL (8.4-10.2); Carbon Dioxide 23 mmol/L (22-29); Chloride 110 mmol/L (96-108); Creatinine Clr Calc Pharmacy 92.8; Estimated Glomerular Filt Rate > 60; Glucose Random 102 mg/dL (60-115); Lipase 40 U/L (8-78); Potassium 4.5 mmol/L (3.3-5.1); Sodium 142 mmol/L (135-145); Total Protein 6.9 g/dL (6.5-8.0)
--- OUTSIDE RECORDS SUMMARY | 2024-08-28 08:50 | XMS_ITS | Continuity of Care Document ---
Author Name [facility] Organization [facility] Care Team Providers Care Washing Machine Operator Name Role Phone [facility] Unavailable Unavailable Social History Combined list of available smoking, tobacco, and other social history from Department of Defense and Veterans Affairs facilities. Social History Type Response Date Comment Sourc e This section is an empty social history section. [facility]
[2024-08-28 09:18] VITALS: BP 129/79; PULSE 78; RESP 16; TEMP 36.6; O2SAT 98
--- NOTE | 2024-08-28 09:37 | ED_ITS ---
HPI - Abdominal Pain General Chief Complaint: Abdominal Pain Stated Complaint: r side pain Time Seen by Provider: 08/28/24 09:02 Source: patient, RN notes reviewed and old records reviewed Mode of arrival: ambulatory History of Present Illness ED Provider: Meghan Lerma PA-C HPI narrative: 59-year-old female with a medical history arthritis, steatosis, presenting to the ED complaining of right upper quadrant pressure x this morning. Reports on Wednesday LUQ pain which is now resolved. Denies associated fever, chills, cough, SOB/CP, nausea, vomiting, dysuria/hematuria, constipation/diarrhea. Pain is not exacerbated by eating Related Data Home Medications ?Medication ?Instructions ?Recorded ?Confirmed tirzepatide 15 mg/0.5 mL 17 mg subcut QWEEK 06/08/24 06/13/24 subcutaneous pen injector (Mounjaro) Previous Rx's ?Medication ?Instructions ?Recorded estradiol 10 mcg vaginal insert, 10 mcg vaginal .COMPLEX #30 ea 02/16/23 in a starter dose pack Zepbound 10 mg/0.5 mL subcutaneous 10 mg (0.5 mL) subcut QWEEK 28 08/15/24 solution (tirzepatide (weight days #2 mL loss)) Allergies Allergy/AdvReac Type Severity Reaction Status Date / Time No Known Allergies Allergy Verified 08/28/24 07:47 Review of Systems Review of Systems Yes all other systems are reviewed and are negative Constitutional: Reports as per HPI [facility] Past Medical History Attestation statement: The following information was validated with the patient. Source: old records reviewed Medical History Quadriceps muscle rupture Hay fever Increased BMI Arthritis Liver problem Surgical History Hx of colonoscopy Hx of foot surgery History of arthroscopy of right knee History of surgical removal of ganglion cyst History of carpal tunnel release of both wrists S/P trigger finger release History of breast biopsy Hx of tonsillectomy Family History Family History Mother Breast cancer Social History Social History Are you a primary care team assistant to a significant other at home: No Do you presently have visiting nurse or other home services: No Alcohol intake: current Alcohol intake frequency: a few times a week Alcohol type: wine Patient Tobacco Use Status: Former Tobacco user Current occupational status: employed 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 Physical Exam ED Vital Signs: Vital Signs - 24 hr 08/28/24 07:45 08/28/24 08:12 08/28/24 09:18 Temperature 97.7 F 97.8 F 97.8 F Pulse Rate 79 80 78 Respiratory Rate 18 16 16 Blood Pressure 141/75 H 133/79 129/79 Pulse Oximetry 98 96 98 Oxygen Delivery Method Room Air Room Air Room Air 08/28/24 11:20 08/28/24 11:21 Temperature 97.8 F 97.8 F Pulse Rate 78 78 Respiratory Rate 16 16 Blood Pressure 129/79 129/79 Pulse Oximetry 98 98 Oxygen Delivery Method Room Air Room Air BMI result Body Mass Index 40.6 Const General: cooperative, healthy appearing and no acute distress Orientation/consciousness: patient oriented x3 Limitations: no limitations HENMT Head: Yes normal to inspection and Yes atraumatic Ears: hearing grossly normal bilaterally General nose exam: Normal external nose present Face and sinus: Yes normal facial exam Eyes General: appearance normal, both eyes and all related structures EOM: EOMs intact bilaterally Neck Neck: Yes normal visual inspection and Yes no meningeal signs Resp Effort & Inspection: normal respiratory effort and no respiratory distress Auscultation: clear to auscultation bilaterally, no crackles, no rales, no rhonchi and no wheezes Cardio Rate: regular rate Heart sounds: S1 normal heart sound present and S2 normal heart sound present GI Inspection: Yes normal to inspection Palpation (GI): Soft to palpation, nontender, no guarding and not rigid General: Yes no CVA tenderness Back/Spine/Pelvis Back: no CVA tenderness Skin Rashes: no rashes Wounds: no wounds Neuro General: patient oriented x3, tone normal and no meningeal signs Cranial nerves: Yes CN's II-XII intact bilaterally Gait exam (Neuro): Normal gait present Extrem General: Yes normal to inspection Course Course Course Narrative: -1100--no leukocytosis. H/H stable. AST/ALT mildly elevated. -UA negative XR chest 2V IMPRESSION: No active pulmonary disease. US abdomen limited IMPRESSION: 1. Normal gallbladder and bile ducts. 2. Mild hepatic enlargement and increased echogenicity, most likely related to hepatic steatosis. No focal hepatic lesion. 3. Mild pelvic fullness of the right kidney, nonspecific. No gross hydronephrosis. > 1105--on re-evaluation patient reports symptomatic improvement, would like to be discharged. Troponin currently pending, patient would like to be discharged prior to troponin result. will be contacted with positive results Results discussed with patient including worrisome signs and symptoms and strict return precautions, and when to return to the emergency department. They verbalized understanding and feel safe for discharge at this time. Medical Decision Making Medical Decision Making MDM Narrative: 59-year-old female with a medical history arthritis, steatosis, presenting to the ED complaining of right upper quadrant pressure x this morning. On exam vital signs stable, in NAD, nontoxic appearing, abdomen is and nontender lungs CTA, no CVAT. Concern biliary colic vs pancreatitis vs renal stones/pyelo. Rule out UTI. Lower suspicion for pneumonia or atypical ACS/dissection at this time Plan: EKG, labs, CXR, ultrasound, GI cocktail/re-evaluate Please refer to course for remaining clinical decision making, interpretation of labs/imaging results, and discussions with consultants and/or family members. Differential Diagnosis Differential Diagnoses: The differential diagnosis associated with the presentation includes As above Admission/Observation Consideration of admission/observation: Escalation of care including admission/observation considered Lab Data [facility] Lab Attestation statement: I reviewed the patient's lab results. 08/28/24 07:58 08/28/24 07:58 Labs: Lab Results 08/28/24 08/28/24 Range/Units 07:58 10:26 WBC 6.1 (4.8-10.8) X10*3/uL RBC 5.27 (4.20-5.50) X10*6/uL Hgb 14.1 (12.0-16.0) g/dl Hct 44.7 (37.0-47.0) % MCV 84.8 (80.0-98.0) fL MCH 26.8 L (27.0-33.0) pg MCHC 31.5 (31.0-35.0) g/dl RDW 14.9 (11.0-16.0) % Plt Count 327 (160-400) X10*3/uL MPV 9.3 L (9.4-12.3) fL Immature Gran % (Auto) 0.3 (0.0-0.4) % Neut % (Auto) 63.3 (45-73) % Lymph % (Auto) 24.9 (20-40) % [place] % (Auto) 8.4 (2-11) % Eos % (Auto) 2.3 (0-4) % Baso % (Auto) 0.8 (0-2) % Lymph # (Auto) 1.5 (1.2-4.9) X10*3/uL [place] # (Auto) 0.5 (0.1-1.2) X10*3/uL Eos # (Auto) 0.1 (0.0-0.4) X10*3/uL Baso # (Auto) 0.1 (0.0-0.2) X10*3/uL Abs Immat Gran (auto) 0.02 (0.00-0.03) X10*3/uL Absolute Neuts (auto) 3.9 (2.0-8.3) x10*3/uL Absolute Nucleated RBC 0.000 (0.0-0.012) X10*3/uL Nucleated RBC % (auto) 0.0 (0.0-0.2) /100WBC Sodium 142 (135-145) mmol/L Potassium 4.5 (3.3-5.1) mmol/L Chloride 110 H (96-108) mmol/L Carbon Dioxide 23 (22-29) mmol/L Anion Gap 14 (12-20) BUN 15 (9-16) mg/dL Creatinine 0.79 (0.5-1.4) mg/dL Estim Creat Clear Calc 92.8 Estimated GFR > 60 Random Glucose 102 (60-115) mg/dL Calcium 9.6 (8.4-10.2) mg/dL Magnesium 2.0 (1.6-2.6) mg/dL Total Bilirubin 0.4 (0.0-1.0) mg/dL AST 93 H (5-31) U/L ALT 68 H (0-31) U/L Alkaline Phosphatase 95 (39-117) U/L Troponin I High Sens < 2.7 (<3.5-17.0) ng/L Total Protein 6.9 (6.5-8.0) g/dL Albumin 4.3 (3.5-5.0) g/dL Lipase 40 (8-78) U/L Urine Color Yellow Urine Appearance Clear Urine pH 6.5 (5.0-9.0) Ur Specific [place] 1.010 (1.005-1.025) Urine Protein Negative (Neg-Trace) mg/dL Urine Glucose (UA) Negative (Negative) mg/dL Urine Ketones Negative (Negative) mg/dL Urine Blood Negative (Negative) Urine Nitrite Negative (Negative) Ur Leukocyte Esterase Negative (Negative) Independent Interpretation I performed an independent interpretation of an: EKG (My interpretation: EKG normal sinus rhythm rate of 78. HI interval 136. No previous EKGs to compare. No STEMI ), Plain X-Ray and Ultrasound Radiology Impression Discussion of test interpretation with radiology: I have reviewed the radiologist's reading. Independent Historian Clinical information obtained from an independent historian. History obtained from or confirmed by: Spouse External Record Review External record reviewed: Inpatient record, Office record, Outpatient record, Prior outpatient labs, Prior outpatient radiology, Primary care record and Outside ED record Tests considered The following testing was considered but not selected: As above Prescription Management I considered prescription management with: Pain Medication Chronic Conditions Patient?s care impacted by: Other Social Determinants Patient?s care significantly limited by Social Determinants of Health including: Other Social Determinant of Health Medications Administered Discontinued Medications Generic Name Dose Route Start Last Admin Trade Name Freq PRN Reason Stop Dose Admin Al Hydroxide/Mg Hydroxide 30 ml 08/28/24 09:29 08/28/24 10:13 Magnesium Hydrox/Alum Hydrox 30 Ml Oral.Susp PO 08/28/24 09:30 30 ml ONCE ONE Administration Famotidine 20 mg 08/28/24 09:29 08/28/24 10:12 Famotidine/Pf 20 Mg/2 Ml Vial IVPUSH 08/28/24 09:30 20 mg ONCE ONE Administration Sodium Chloride 500 mls @ 999 mls/hr 08/28/24 09:30 08/28/24 10:12 Ns IV 08/28/24 10:00 999 mls/hr .Q31M AVEL Administration Ketorolac Tromethamine 15 mg 08/28/24 09:29 08/28/24 10:12 Ketorolac Tromethamine 15 Mg/Ml Vial IVPUSH 08/28/24 09:30 15 mg ONCE ONE Administration Discharge Plan Discharge Clinical Impression: Hepatic steatosis, Abdominal pain, RUQ Patient Disposition: Home, Self-Care Instructions: Liver Disease Diet (DC), Transaminitis (ED) Additional Instructions: Your liver enzymes are mildly elevated Your ultrasound shows some fatty liver Otherwise your workup is reassuring today. Your troponin, heart enzyme is currently pending, if this is elevated you will be contacted Please have close follow up with your primary care doctor If symptoms recur, persist, you develop fever, persistent nausea, vomiting or unbearable pain return to the ED immediately Prescriptions: No Action estradiol 10 mcg insert, dose pack 10 mcg vaginal .COMPLEX Qty: 30 3RF Rx Instructions: vaginally twice WEEKLY (every 3-4 days/same days each week) vaginal; Zepbound 10 mg/0.5 mL solution 10 mg subcut QWEEK 28 Days Qty: 2 5RF Rx Instructions: Inject as directed Mounjaro 15 mg/0.5 mL pen injector 17 mg subcut QWEEK Referrals: [facility] [Provider Group] - 1 week (as needed) Star Churchill MD [Primary Care Provider] - 5 days Interventions: ED Discharge Assessment Last Done: 08/28/24 11:21 Discharge Date/Time: 08/28/24 11:23 Print Language: Bulgarian
[2024-08-28] MEDS: Famotidine/PF 20 MG/2 ML VIAL IVPUSH (10:12)
[2024-08-28] MEDS: 0.9 % Sodium Chloride 500 ML 999 ML IV (10:12)
[2024-08-28] MEDS: Ketorolac Tromethamine 15 MG/ML VIAL IVPUSH (10:12)
[2024-08-28] MEDS: Magnesium Hydrox/Alum Hydrox 30 ML ORAL.SUSP PO (10:13)
[2024-08-28 10:36] LABS: Appearance Urine Clear; Color Urine Yellow; Glucose Urine UA Negative (Negative); Leukocyte Esterase Urine Negative (Negative); Nitrite Urine Negative (Negative); PH 6.5 (5.0-9.0); Urine Blood Negative (Negative); Urine Ketones Negative (Negative); Urine Protein Negative (Neg-Trace)
[2024-08-28 11:20] VITALS: BP 129/79; PULSE 78; RESP 16; TEMP 36.6; O2SAT 98
[2024-08-28 11:21] VITALS: BP 129/79; PULSE 78; RESP 16; TEMP 36.6; O2SAT 98
[2024-08-28 11:32] LABS: Troponin-I High Sensitivity < 2.7 ng/L (<3.5-17.0)
== END 2024-08-28 11:23 | disposition home or self-care (01) ==
PROVIDERS: Physician Assistant; Emergency Provider Emergency Medicine Emergency Medical Services; PCP Internal Medicine
DX: K76.0 Fatty (change of) liver, not elsewhere classified (principal); R10.11 Right upper quadrant pain; Z87.891 Personal history of nicotine dependence
CPT/HCPCS: 36415; 71046; 76705; 80053; 81003; 83690; 83735; 84484; 85025; 93005; 96361; 96374; 96375; 99284; 99285; J1308; J1885

== ENCOUNTER → 2024-08-28 07:49 | Outpatient (BNV) | payer OTHER, SELFPAY | PROVIDERS: Emergency Provider Emergency Medicine Emergency Medical Services; PCP Internal Medicine; Visit Provider Internal Medicine Cardiovascular Disease | DX: R10.11 Right upper quadrant pain (principal) | CPT/HCPCS: 93010 ==

== ENCOUNTER → 2024-08-28 09:25 | Outpatient (BNV) | payer OTHER, SELFPAY | PROVIDERS: Emergency Provider Emergency Medicine Emergency Medical Services; PCP Internal Medicine; Visit Provider Radiology Diagnostic Radiology | DX: K76.0 Fatty (change of) liver, not elsewhere classified (principal); R10.11 Right upper quadrant pain | CPT/HCPCS: 71046; 76705 ==

== ENCOUNTER 2025-02-07 15:30 | Outpatient (REF) | payer OTHER, SELFPAY ==
--- NOTE | ~2025-02-07 | MM_ITS ---
EXAMINATION: MM SCREENING DIGITAL BREAST TOMOSYNTHESIS, BILATERAL CLINICAL INFORMATION: Screening. Asymptomatic. COMPARISON: Comparison made to multiple prior, most recent July 15, 2023, and most remote January 20, 2017. TECHNIQUE: Digital breast tomosynthesis is performed in mediolateral oblique and craniocaudal views along with computer-aided detection (CAD). Synthesized 2D images are generated from the tomosynthesis. FINDINGS: BREAST COMPOSITION: The breasts are heterogeneously dense, which may obscure small masses. BILATERAL BREASTS: No significant masses, suspicious calcifications or other abnormalities are seen in either breast. MM/MM tomosynthesis screening BI IMPRESSION: BILATERAL BREASTS: Negative, no mammographic evidence of malignancy. Normal interval follow-up is recommended in 12 months. ASSESSMENT: BI-RADS: Category 1: Negative RECOMMENDATION: Routine annual mammography screening. FOLLOW-UP: 1 year F/U This examination should not preclude the clinical evaluation of a suspicious palpable abnormality. This patient's information was entered into a reminder system with a target due date for their next mammogram. Electronically signed by: Oly Diane MD 02/14/2025 02:45 PM EST
--- OUTSIDE RECORDS SUMMARY | 2025-02-07 17:47 | XMS_ITS | Clinical Summary ---
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 2 Active tirzepatide (MOUNJARO) 7.5 mg/0.5 mL PnIj subcutaneous pen Inject 7.5 mg under the skin every 7 days. Active Active Problems Problem Noted Date Diagnosed Date Paraesophageal hernia 09/23/2023 Overview (09/23/2023): 09/14/[address] Kyle Cole for eval of this, they are doing a chest CT to eval further and develop a plan Hyperlipidemia 08/16/2018 Immunizations Immunization Administration Dates Next Due COVID-19 (Pre-01/04) Pfizer Vaccine, mRNA, PF 03/22/2020,03/01/2020 INFLUENZA, SPLIT VIRUS, TRIVALENT PF 02/01/2024 Influenza Quadrivalent MDCK Preservative Free IM 12/27/2017 Influenza Quadrivalent Prese rvative Free IM 12/30/2022,12/23/2021,12/19/2020,2019,12/28/2018 Pneumococcal conjugate PCV20 08/24/2024 Tdap 06/15/2013 Family History Medical History Relation Comments Dementia Father Glaucoma Father Hyperlipidemia Father Atrial fibrillation Mother Breast cancer Mother Relation Status Comments Father Alive DEMENTIA 2 YEARS , HIGH CHOLESTEROL Mother Alive BREAST CANCER 62 , AFIB, THYROID DISESE Sister Alive THYROID DISEASE Social History Tobacco Use Types Packs/Day Years Used Date Smoking Tobacco: Former Cigarettes 1 19 2010 Smokeless Tobacco: Never Comments:from age [age], the n restarted at age 32 Alcohol Use Standard Drinks/Week Comments Yes 14 (1 standard drink = 0.6 oz pure alcohol) 2 glasses of wine daily with dinner Child or Family Care Answer Date Record ed Do you have problems with on e of the following making it difficult for you to work, study, or receive health care? No 06/16/2024 Education Answer Date Recorded Are you interested in help w ith more adult education (for example, completing high school, GED, job training, learning the [place]e language, technical skills, or developing parenting skills)? No 06/16/2024 Are you concerned about learning? Not on file 06/16/2024 No 06/16/2024 Yes 06/16/2024 Food Answer Date Recorded Within the past 6 months we worried whether our food would run out before we got money to buy more. Never True 06/16/2024 Within the past 6 months the food we bought just didn't last and we didn't have enough money to get more. Never True Residential Stability Answer Date Recor ded What is your housing situation today? I have maegan reece 06/16/2024 How many times have you move d in the past 12 months? Zero (I did not move) 06/16/2024 Paying for Meds Answer Date Recorded Do you have trouble paying for medicines? No 06/16/2024 Paying Utility Bills Answer Date Record ed Do you have trouble paying your heating or elect ricity bill? No 06/16/2024 Transportation Answer Date Recorded Has the lack of transportati on kept you from medical appointments or from getting medications? No 06/16/2024 Unemployment Answer Date Recorded Are you currently unemployed or working on a part-time or temporary basis, and looking for work? No 07/21/2021 Digital Access Answer Date Recorded No 06/16/2024 Yes 06/16/2024 Do you have reliable internet access at home? Ye s 06/16/2024 Do you have a device (e.g., phone, tablet, computer) with a working camera? Yes 06/16/2024 Intimate Partner Violence Answer Date R ecorded Denied Basic Needs Not on file 06/16/2024 In the past 12 months have y ou been in a relationship with a person who hurts, threatens, or tries to control you? No 06/16/2024 Worried food would run out Not on file 06/16 In the past 12 months have y ou been in a relationship with a person who hurts, threatens, or tries to control you? No 06/16/2024 Comments No Sex and Gender Information Value Date Recorded Sex Assigned at Not on file Legal Sex Female 9:40 PM EDT Gender Identity Not on file Sexual Orientation Not on file Last Filed Vital Signs Vital Sign Reading Time Taken Comments Blood Pressure 123/65 08/24/2024 2:21 PM EDT Pulse 93 08/24/2024 2:21 PM EDT Temperature 37 C (98.6 F) 08/24/2024 2:21 PM EDT Respiratory Rate 20 08/24/2024 2:21 PM EDT Oxygen Saturation 95% 08/24/2024 2:21 PM EDT Inhaled Oxygen Concentration - - Weight 108.9 kg (240 lb) 08/24/2024 2:21 PM EDT Height 162.6 cm (5' 4.02 ) 08/24/2024 2:21 PM ED T Body Mass Index 41.18 08/24/2024 2:21 PM EDT Plan of Treatment Upcoming Encounters Date Type Department Care Team (Late st Contact Info) Description 08/27/2025 2:30 PM EDT Office Visit [facility] [address] [place] [address] Star Churchill MD [address] [place] [address] [email or web address] Health Maintenance Due Date Last Done Comments HEPATITIS C SCREENING 01/22/1984 HIV ONE-TIME SCREENING (18-65 YEARS) 01/22/1984 COLOGUARD 2011 FIT TEST 2011 FOBT 2011 SIGMOIDOSCOPY 2011 VIRTUAL COLONOSCOPY 2011 RSV VACCINE (1 - Risk 50-74 years 1-dose series) 01/22/2016 ZOSTER VACCINES (1 of 2) 01/22/2016 Adult Td,Tdap Booster 06/16/2023 06/15/2013 SCREENING FOR DIABETES 07/15/2024 07/15/2021 INFLUENZA VACCINE (#1) 2024 , 12/30/2022, 12/23/2021, Additional history exists COVID-19 VACCINE ( season) 2024 01/08/2022, 12/10/2020, 03/22/2020, Additional history exists DEPRESSION SCREENING 08/18/2025 08/18/2024 PAP SMEAR 07/02/2026 07/02/2021, 03/21/2015 LIPID PANEL 07/15/2026 07/15/2021, 04/15, 04/26/2014, Additional history exists MAMMOGRAM 08/24/2026 08/24/2024, 05/0 04/2023, 07/15/2023, Additional history exists COLONOSCOPY 02/01/2027 02/01/2017 COLORECTAL CANCER SCREENING 02/01/2027 SMOKING STATUS SCREENING (Every 5 Years) 08/24/2029 08/24/2024 PNEUMOCOCCAL VACCINES (50+ years) Completed 08/24/2024 HEPATITIS A VACCINES Aged Out No long er eligible based on patient's age to complete this topic HIB VACCINES Aged Out No longer eligi ble based on patient's age to complete this topic MENINGOCOCCAL VACCINES (ACWY) Aged Out No longer eligible based on patient's age to complete this topic MENINGOCOCCAL VACCINES (B) Aged Out N o longer eligible based on patient's age to complete this topic Medical Devices Not on file Procedures Procedure Name Priority Date/Time Associated Diagnosis Comments BI MAMMOGRAM SCREENING (BILATERAL) Routine 08/24/2024 3:09 PM EDT Need for pneumococcal 20-valent conjugate vaccination LIPID PANEL Routine 07/15/2021 Pure hypercholesterolemia PAP TEST Routine 07/02/2021 HM COLONOSCOPY FOR RESULT ENTRY ONLY Routine 02/01/2017 from Last 3 Months or Most Recently Relevant to Health Maintenance Results * HM MAMMOGRAPHY FOR RESULT ENTRY ONLY (07/15/2023 2:45 PM EDT) Star Churchill MD HEALTH MAINTENANCE Edited Res ult - Final * (ABNORMAL) Lipid panel (07/15/2021) HDL - External 81(A) 40 - 80 mg/dL EXTERNAL NON-INTERFACE D REF LAB Cholesterol, total - External 313(A) <=200 mg/dL EXTERNAL NON-INTERFACE D REF LAB Triglycerides - External 84 EXTERNAL NON-INTERFACE D REF LAB LDL - External 216 50 - 250 mg/dL EXTERNAL NON-INTERFACE D REF LAB Blood 07/15/2021 Star Churchill MD LAB BLOOD BKR ORDERABLES Edit ed Result - Final EXTERNAL NON-INTERFACED REF LAB * Pap Smear (07/02/2021) Historical Provider CYTOLOGY ORDERABLES Edite d Result - Final * HM COLONOSCOPY FOR RESULT ENTRY ONLY (02/01/2017) Historical Provider HEALTH MAINTENANCE Final Result from Last 3 Months or Most Recently Relevant to Health Maintenance Insurance [employer] [facility] ADMINISTRATORS [employer] [facility] ADMINISTRATORS [place] [id number] [employer] B[employer] 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 It is not the complete legal health record.[facility]
== END 2025-02-07 15:31 | disposition home or self-care (01) ==
LOC: HO.MAMMO 15:30
PROVIDERS: Visit Provider Internal Medicine
DX: Z12.31 Encounter for screening mammogram for malignant neoplasm of breast (principal)
CPT/HCPCS: 77063; 77067

== ENCOUNTER → 2025-02-07 15:30 | Outpatient (BNV) | payer OTHER, SELFPAY | PROVIDERS: Visit Provider Radiology Body Imaging | DX: Z12.31 Encounter for screening mammogram for malignant neoplasm of breast (principal) | CPT/HCPCS: 77063; 77067 ==